=== PATIENT | male | born 1965 | race Caucasian/White ===

== ENCOUNTER 2020-05-06 09:11 | Emergency (ER) | payer BC, SELFPAY ==
[2020-05-06 09:29] VITALS: BP 159/74; PULSE 72; RESP 18; TEMP 36.7; O2SAT 98; BMI 31.4
--- NOTE | 2020-05-06 09:48 | HMH.EDUTC ---
[facility] [place] Disposition Clinical Impression: Exposure to COVID-19 virus Disposition: Home, Self-Care Condition on Discharge: Good Instructions: Preventing the Spread of Coronavirus Discharge Instructions Additional Instructions: Drink plenty of fluids. Take tylenol for pain or fever. Follow up with your regular doctor. GO TO THE ER FOR ANY WORSENING SYMPTOMS FOLLOW THE DIRECTIONS ON THE COVID-19 HAND OUT THAT WE GAVE YOU REGARDING SELF-ISOLATION UNTIL YOU KNOW YOUR COVID-19 RESULTS Referrals: Lynnette Mohamud [Primary Care Provider] - Time of Disposition: 09:50 Medical Decision Making - Medical Records Medical records reviewed: No: I reviewed the patient's medical records. - Walker Inquiry Pt receiving controlled substance: No Vital Signs: 05/06/20 09:29 05/06/20 09:58 Temperature 98.1 F 98.1 F Temperature Source Oral Oral Pulse Rate 72 Pulse Rate [Radial] 72 Respiratory Rate 18 18 Blood Pressure 159/74 H Blood Pressure [Right Arm] 159/74 H Blood Pressure Mean [Right Arm] 102 Blood Pressure Source Automatic Cuff Blood Pressure Source [Right Arm] Automatic Cuff Blood Pressure Position Sitting Blood Pressure Position [Right Arm] Sitting 02 Sat by Pulse Oximetry 98 Oxygen Delivery Method Room Air Room Air Orders (Tests/Meds): ORDERS Category Date Time Status Full Resp Panel w/COVID ([facility]) Routine Lab 05/06/20 09:24 Received [facility] [place] HPI - General Stated complaint: wants covid test Time Seen by Provider: 05/06/20 09:30 Mode of Arrival: Ambulatory Source of Information: Patient Limitations: No Limitations Description of Symptoms (Recalled from Triage Doc. by RN): covid exposure HEENT Symptoms (Recalled from RN notes): No Resp Symptoms (Recalled from RN notes): No Skin Symptoms (Recalled from RN notes): No MS Symptoms (Recalled from RN notes): No Functional Status (Recalled from RN notes): wnl - History of Present Illness Provider Complaint: He was exposed to covid approx 1 week ago. He denies any symptoms. - Related Data Allergies Allergy/AdvReac Type Severity Reaction Status Date / Time No Known Allergies Allergy Verified 05/06/20 09:35 - Worker's Comp Is this a Worker's Comp case?: No [facility] History - Hepatitis A Screen Drug use history?: No High risk sexual behaviors?: No History of sexually transmitted infection?: No Currently employed?: No Childcare worker?: No Do you have indoor plumbing?: Yes Do you have electricity?: Yes Attestation statement:: This patient has been screened for Hepatitis A risk factors. I have reviewed the patient's past medical history: Yes Medical History: Reports:: Diabetes Mellitus Type 2 - Social History Smoking Status: Current every day smoker Tobacco Type: cigarettes # Packs/Day (cigarettes): 1 Alcohol Intake: never Occupational Status: employed Housing: house ROS Obtained: Yes All systems reviewed & no additional complaints - Constitutional Constitutional: Reports system reviewed and no additional complaints, except as docu - Eyes Eyes: Reports system reviewed and no additional complaints, except as docu - ENT Ears, Nose, Mouth, and Throat: Reports system reviewed and no additional complaints, except as docu - Cardiovascular Cardiovascular: Reports system reviewed and no additional complaints, except as docu - Respiratory Respiratory: Yes system reviewed and no additional complaints, except as docu - Gastrointestinal Gastrointestingal: Reports: system reviewed and no additional complaints, except as docu Physical Exam - General General appearance: alert, in no apparent distress - Head Head exam: atraumatic, normocephalic, normal inspection - Eye Eye exam: Present: normal appearance, PERRL, EOMI - ENT ENT exam: Present: normal exam, normal oropharynx, mucous membranes moist, TM's normal bilaterally, normal external ear exam - Neck Neck exam: Present: normal inspection, full RO
[2020-05-06 09:58] VITALS: BP 159/74; PULSE 72; RESP 18; TEMP 36.7; O2SAT 98
[2020-05-07 14:02] LABS: Covid-19 Nasal PCR Sendout Lex NOT DETECTED
== END 2020-05-06 09:59 | disposition home or self-care (01) ==
PROVIDERS: Emergency Provider Nurse Practitioner Family; PCP Internal Medicine
DX: Z20.828 Contact with and (suspected) exposure to other viral communicable diseases (principal); F17.210 Nicotine dependence, cigarettes, uncomplicated
CPT/HCPCS: 99201; U0004

== ENCOUNTER 2020-12-30 01:43 | Emergency (ER) | payer BC, OTHER, SELFPAY ==
[2020-12-30] VITALS (8 sets, daily range): BP systolic 128–149; BP diastolic 67–83; PULSE 67–87; RESP 16; TEMP 36.6–36.8; O2SAT 96–98; BMI 31.8
--- NOTE | 2020-12-30 01:58 | CT_ITS ---
PROCEDURE INFORMATION: Exam: CT Abdomen And Pelvis With Contrast Exam date and time: 12/30/2020 1:58 AM Age: 55 years old Clinical indication: Abdominal pain; Localized; Left lower quadrant (llq); Patient HX: Left low quad pain and flank pain x 1 week; Additional info: Abd pain TECHNIQUE: Imaging protocol: Computed tomography of the abdomen and pelvis with contrast. Radiation optimization: All CT scans at this facility use at least one of these dose optimization techniques: automated exposure control; mA and/or kV adjustment per patient size (includes targeted exams where dose is matched to clinical indication); or iterative reconstruction. Contrast material: ISOVUE; Contrast volume: 75 ml; Contrast route: IV; COMPARISON: No relevant prior studies available. FINDINGS: Liver: Normal. Gallbladder and bile ducts: Normal. Pancreas: Minimally enlarged pancreatic head, with adjacent associated fat stranding, possibly acute pancreatitis. No pseudocyst formation or pancreatic necrosis. Spleen: Splenic calcifications, compatible with prior granulomatous disease. Adrenal glands: Normal. No mass. Kidneys and ureters: Normal. Stomach and bowel: Normal. Appendix: Appendix is normal. Intraperitoneal space: Unremarkable. No free air. No significant fluid collection. Vasculature: Atherosclerotic disease of the abdominal aorta and iliac arteries. Lymph nodes: Unremarkable. No enlarged lymph nodes. Urinary bladder: Unremarkable as visualized. Reproductive: Unremarkable as visualized. Bones/joints: No acute abnormality. Soft tissues: Normal. Other findings: Calcified granulomas within the lower lobes bilaterally. IMPRESSION: Minimally enlarged pancreatic head, with adjacent associated fat stranding, possibly acute pancreatitis. No pseudocyst formation or pancreatic necrosis. Recommend correlation with laboratory values.
[2020-12-30 02:04] LABS: Microscopic, Urine URINE MICROSCOPIC (MICROSCOPIC)
[2020-12-30 02:06] LABS: Appearance,Urine CLEAR (Clear); Bilirubin,Urine Negative (Negative); Blood, Urine Negative (Negative); Color,Urine YELLOW (Yellow); Glucose,Urine (UA) Negative (Negative); Ketones,Urine Negative (Negative); Leukocyte Esterase,Urine Negative (Negative); Nitrate,Urine Negative (Negative); PH,Urine 5.5 (5.0-8.5); Protein,Urine Negative (Negative); Specific Gravity, Urine 1.025 (1.005-1.030); Urobilinogen,Urine 0.2 EU/dl (0.2)
[2020-12-30 02:07] LABS: Basophils # 0.2 K/mm3 (0-0.2); Basophils % 1.1 % (0.1-2.0); Eosinophils # 0.3 K/mm3 (0.0-0.4); Eosinophils % 1.8 % (0.1-12.0); Hematocrit 49.6 % (42.0-52.0); Hemoglobin 17.3 g/dL (14.1-18.0); Lymphocytes % 21.7 % (10-50); Mean Corpuscular HGB Conc 34.9 g/dL (31.8-35.4); Mean Corpuscular Hemoglobin 29.2 pg (27.0-31.2); Mean Corpuscular Volume 83.8 fl (80-94); Mean Platelet Volume 7.4 fl (7.4-10.4); Monocytes # 0.7 K/mm3 (0.1-1.0); Monocytes % 5.2 % (1.7-9.3); Neutrophils # 9.7 K/mm3 (1.8-7.8); Neutrophils % 70.2 % (37.0-80.0); Platelet Count 284 K/mm3 (142-424); Red Blood Count 5.92 M/mm3 (4.60-6.20); Red Cell Distribution Width 13.2 % (11.5-17.5); White Blood Count 13.8 K/mm3 (4.8-10.8)
[2020-12-30 02:12] LABS: Bacteria,Urine 1+ /lpf; Mucus,Urine 1+ /lpf; RBC,Urine Occasional #/hpf (0-3); WBC,Urine Occasional #/hpf (0-3)
[2020-12-30 02:16] LABS: Alanine Aminotransferase 21 U/L (12-78); Albumin Level 4.8 g/dl (3.5-5.0); Albumin/Globulin Ratio 1.4 (1.1-1.8); Alkaline Phosphatase 73 U/L (38-126); Amylase 105 U/L (30-110); Anion Gap 14.4 mEq/L (5-15); Aspartate Amino Transferase 26 U/L (17-59); Blood Urea Nitrogen 11 mg/dl (9-20); Carbon Dioxide 26 mmol/L (22.0-30.0); Chloride 101 mmol/L (98-107); Creatinine Clearance Estimated 154 mL/min (50-200); Estimated Glomerular Filt Rate 101 ml/min (>60); GFR (African American) 122 ML/MIN (>60); Globulin 3.5 g/dL (1.3-3.2); Glucose 115 mg/dl (74-100); Lipase 512 U/L (23-300); Potassium 4.4 mmoL/L (3.5-5.1); Sodium 137 mmol/L (136-145); Total Protein,Serum 8.3 g/dl (6.3-8.2)
[2020-12-30 02:22] LABS: C-Reactive Protein 13.5 mg/L (0-4)
[2020-12-30 02:36] LABS: Procalcitonin 0.081 ng/mL (0.0-2.0)
[2020-12-30 02:42] LABS: Erythrocyte Sedimentation Rate 14 mm/hr (0-20)
--- NOTE | 2020-12-30 02:48 | HMH.EDNVD ---
ED Disposition Clinical Impression: Pancreatitis Qualifiers: Chronicity: acute Pancreatitis type: unspecified pancreatitis type Acute pancreatitis complication: no infection or necrosis Qualified Code(s): K85.90 - Acute pancreatitis without necrosis or infection, unspecified Disposition: Home, Self-Care Condition on Discharge: Good Instructions: DI for Pancreatitis Additional Instructions: liquids and see pcp for follow up Referrals: Lynnette Mohamud [Primary Care Provider] - - Critical Care Critical Care Time: No Attestation: On 12/30/20, the high probability of a clinically significant, sudden or life threatening deterioration of the following system(s) required my full and direct attention, intervention and personal management. The time I documented below is in addition to time spent performing reported procedures but includes the following listed in this critical care notation. Medical Decision Making - Medical Records Medical records reviewed: Yes: I reviewed the patient's medical records. - Walker Inquiry Pt receiving controlled substance: No Vital Signs: 12/30/20 01:44 12/30/20 02:00 12/30/20 02:30 Temperature 98.3 F Temperature Source Oral Pulse Rate 82 72 Pulse Rate [Right] 87 Respiratory Rate 16 16 Blood Pressure 147/83 H 128/67 Blood Pressure [Right Arm] 148/75 H Blood Pressure Mean Blood Pressure Mean [Right Arm] 99 02 Sat by Pulse Oximetry 98 97 97 Oxygen Delivery Method Room Air Room Air 12/30/20 03:00 12/30/20 03:30 12/30/20 04:00 Temperature Temperature Source Pulse Rate 73 74 72 Pulse Rate [Right] Respiratory Rate Blood Pressure 149/76 H 133/76 135/76 Blood Pressure [Right Arm] Blood Pressure Mean 107 Blood Pressure Mean [Right Arm] 02 Sat by Pulse Oximetry 97 98 96 Oxygen Delivery Method Room Air - Lab Data Lab results reviewed: Yes: I reviewed the patient's lab results. Lab Results 12/30/20 01:50: Urine Color Yellow, Urine Appearance Clear, Urine pH 5.5, Ur Specific Franklin 1.025, Urine Protein Negative, Urine Glucose (UA) Negative, Urine Ketones Negative, Urine Blood Negative, Urine Nitrate Negative, Urine Bilirubin Negative, Urine Urobilinogen 0.2, Ur Leukocyte Esterase Negative, Urine RBC Occasional, Urine WBC Occasional, Ur Squamous Epith Cells 3-5, Urine Bacteria 1+, Urine Mucus 1+ 12/30/20 01:57: WBC 13.8 H, RBC 5.92, Hgb 17.3, Hct 49.6, MCV 83.8, MCH 29.2, MCHC 34.9, RDW 13.2, Plt Count 284, MPV 7.4, Neut % (Auto) 70.2, Lymph % (Auto) 21.7, Dare % (Auto) 5.2, Eos % (Auto) 1.8, Baso % (Auto) 1.1, Neut # (Auto) 9.7 H, Lymph # (Auto) 3.0, Dare # (Auto) 0.7, Eos # (Auto) 0.3, Baso # (Auto) 0.2, ESR 14 12/30/20 01:57: Sodium 137, Potassium 4.4, Chloride 101, Carbon Dioxide 26, Anion Gap 14.4, BUN 11, Creatinine 0.80, Estimated Creat Clear 154, Estimated GFR 101, Est GFR ( Amer) 122, Glucose 115 H, Calcium 9.0, Total Bilirubin 1.0, AST 26, ALT 21, Alkaline Phosphatase 73, C-Reactive Protein 13.5 H, Total Protein 8.3 H, Albumin 4.8, Globulin 3.5 H, Albumin/Globulin Ratio 1.4, Amylase 105, Lipase 512 H, Procalcitonin 0.081 Result diagrams: 12/30/20 01:57 12/30/20 01:57 Orders (Tests/Meds): ED MEDICATIONS Generic Name Dose Route Start Last Admin Trade Name Freq PRN Reason Stop Dose Admin Sodium Chloride 1,000 mls @ 999 mls/hr 12/30/20 02:00 12/30/20 02:03 Sod Chlor 0.9% 1000ml Bag IV 12/30/20 03:00 999 mls/hr .Q1H1M GARTH Administration Sodium Chloride 1,000 mls @ 999 mls/hr 12/30/20 04:00 12/30/20 04:08 Sod Chlor 0.9% 1000ml Bag IV 12/30/20 05:00 999 mls/hr .Q1H1M GARTH Administration Sodium Chloride 8 ml 12/30/20 02:00 Sodium Chloride 0.9% 10ml Vial IV 01/29/21 01:59 NEEDED PRN dilute pepcid Discontinued Medications Generic Name Dose Route Start Last Admin Trade Name Freq PRN Reason Stop Dose Admin Famotidine 20 mg 12/30/20 02:00 12/30/20 02:03 Famotidine 20mg/2ml Via
--- NOTE | 2020-12-30 02:54 | PC.NURSE ---
pt returned from CT
--- NOTE | 2020-12-30 03:58 | US_ITS ---
PROCEDURE INFORMATION: Exam: US Abdomen; Limited Exam date and time: 12/30/2020 3:58 AM Age: 55 years old Clinical indication: Abdominal pain; Patient HX: Left side pain, epigastric pain; Additional info: Luq pain TECHNIQUE: Imaging protocol: US abdomen. Real time ultrasound with image documentation. Limited exam focused on the region of clinical interest. COMPARISON: CT ABDOMEN PELVIS W CON 12/30/2020 2:38 AM FINDINGS: Liver: The liver is unremarkable. Gallbladder: There is mild gallbladder hydrops. No gallstones or sludge is seen. The wall thickness is within normal limits. No sonographic Pepe sign is noted no pericholecystic fluid is seen. Pancreas: The pancreas is somewhat obscured by overlying bowel gas. Intraperitoneal space: The kidneys are unremarkable. No free fluid is seen. IMPRESSION: Unremarkable right upper quadrant study.
== END 2020-12-30 06:01 | disposition home or self-care (01) ==
PROVIDERS: Emergency Provider Emergency Medicine; PCP Internal Medicine
DX: K85.90 Acute pancreatitis without necrosis or infection, unspecified (principal); E11.9 Type 2 diabetes mellitus without complications; I10 Essential (primary) hypertension; F17.210 Nicotine dependence, cigarettes, uncomplicated; Z79.899 Other long term (current) drug therapy
CPT/HCPCS: 74177; 76705; 80053; 81001; 82150; 83690; 84145; 85025; 85651; 86140; 96365; 96366; 96375; 99283; Q9967

== ENCOUNTER 2021-01-21 08:43 | Day surgery (SDC) | payer BC, SELFPAY ==
[2021-01-21] VITALS (7 sets, daily range): BP systolic 126–150; BP diastolic 70–78; PULSE 62–91; RESP 18; TEMP 36.3–36.6; O2SAT 97–99; BMI 27.8
[2021-01-21 08:55] LABS: Coronavirus 19, PCR Not Detected (NotDetected); Influenza A, PCR Not Detected (NotDetected); Influenza B, PCR Not Detected (NotDetected)
[2021-01-21 10:23] LABS: POC Glucose,Bedside 147 (70-110)
--- NOTE | 2021-01-21 11:00 | FL_ITS ---
PROCEDURE: FL ERCP CLINICAL INDICATION: abnormal diagnostic findings Pancreatitis COMPARISON: No exams were available for comparison FINDINGS: Pancreatic duct was 1st cannulated showing some minimal irregularity in the pancreatic head region. Common bile duct did not appear dilated. No large filling defects were apparent. Prior cholecystectomy IMPRESSION: Minimal irregularity of the main pancreatic duct which could be related to pancreatitis. Prior cholecystectomy. No biliary ductal dilatation or large filling defects Dictated by: Neftaly Dumont MD 01/24/2021 16:21 Neftaly Dumont MD in [facility] 01/24/2021 16:21
--- NOTE | 2021-01-21 12:06 | HMH.PROC ---
[facility] Procedure Note Procedure Note:: ERCP procedure Report: Endoscopic retrograde cholangiopancreatography with biliary sphincterotomy and balloon extraction Endoscopist: Kt Richardson II, MD Referring Physician: Lynnette Mohamud MD ([facility]) Date of Procedure: January 21, 2021 Equipment: Olympus 180 side viewing endoscope duodenoscope Sedation: MAC sedation Indication: Mr. Arnold is a 55-year-old gentleman with acute pancreatitis and was hospitalized at the [facility]. He was having periumbilical abdominal pain radiating into the left upper quadrant. He was hospitalized for 3 days and has just now began advancing diet. He uses alcohol rarely but does smoke tobacco daily. The patient did have lab work with normal liver chemistries (alkaline phosphatase 85, ALT 12 and total bilirubin 0.7. His hemoglobin 17.0 and hematocrit 50.5 were normal. His amylase returned to normal at 67. His CAT scan had shown some minimally elevated pancreatic head with adjacent fat stranding. Procedure: Prior to the procedure, a history and physical exam was performed, and patient's medications and allergies were reviewed. The risks, benefits and alternatives of the sedation and procedure were discussed with the patient. All questions were answered and informed consent was obtained. The patient was brought to the fluoroscopic radiology room. Patient identification and proposed procedure were verified by the physician and the nurse. The patient was placed in a swimmer's position between left lateral decubitus and prone position and the scope was passed under direct vision. Throughout the procedure, the patient's blood pressure, pulse, and oxygen saturations were monitored continuously. The ERCP was accomplished without difficulty. The patient tolerated the procedure well. Findings: The side-viewing duodenal scope was passed directly into the upper esophagus and advanced to the second portion of the duodenum. The ampulla was well visualized. The ampulla was normal in appearance and size. The pancreatic duct was cannulated. The pancreatogram showed a normal 2 to 3 mm pancreatic duct with normal filling of the head body and tail of the gland. The genu was normal. There were no ductular ectasias or strictures. There were no intraductal calcifications or filling defects. Next, the common bile duct was freely cannulated. There was some thickness at the sphincter of Oddi. There was delayed drainage of contrast and bile. There was no intraductal filling defects or strictures. There was no biliary ductal dilation. The CBD was approximately 6 to 7 mm in diameter. There was normal filling of the intrahepatic biliary system. There was also normal filling of the cystic duct and partial filling of the gallbladder. Because of delayed drainage, a biliary sphincterotomy was performed. There was extravasation of bile and some contrast as well as a moderate amount of flaky sludgelike debris. Extension of the biliary sphincterotomy was performed. Next, a 9 mm sweeping balloon was placed at the hilum and swept through the biliary system with the passage of bile, sludge but no stones. There was excellent decompression of the biliary system. The procedure was then ended. Impression: 1. Minor choledocholithiasis?minor flaky debris which is probable cause of the patient's recent pancreatitis (i.e. microlithiasis) Plan: The patient is clinically improving. I have recommended avoidance of alcohol and tobacco. I will discuss the findings with the patient and family today.
--- NOTE | 2021-01-21 12:18 | P.PN_ITS ---
[facility] Anesthesia Checklist - Patient Identification Patient Identification: Arm Band - Structural Data Admitted From: Home Planned Operative Procedure/s: ercp Consent for Planned Operative Procedure(s) Verified: Yes Verified Documents: Surgical Consent, History and Physical - NPO Status Verified Time NPO: 00:00 - Additional verifications Anesthesia Reactions: No - Airway Assessment C-Spine Mobility Assessed: Yes (mp2) TMJ Mobility Assessed: Yes Dentition: Poor Dentition - Neurological Assessment Level of Consciousness: Awake, Alert - Anesthesia Plan Anesthesia Risk discussed: Yes Anesthesia Plan: Verified ASA Class: III Anesthesia Type: MAC [facility] History I have reviewed the patient's past medical history: Yes Medical History: Reports:: Diabetes Mellitus Type 2, Gastroesophageal Reflux Disease(GERD), Hypertension Denies:: Cancer, Diabetes Mellitus Type 1, Internal Pacemaker, MRSA, Seizures *Have you ever received a pneumonia vaccine?: No *Have you received a flu vaccine this season?: No Anesthesia experience/problems:: nac Other Surgeries: Yes: Other. No: Pacemaker Amputation: No - *Social History Last grade of school completed: 9th or 10th Smoking Status: Current every day smoker Tobacco Type: cigarettes # Packs/Day (cigarettes): 2 Smoking End Date: 01/18/21 Alcohol Intake: current Alcohol Intake Frequency:: a few times a month Substance Use Type: denies use *Occupational Status:: retired Housing: house Household Members: spouse *Travel in the last 8 weeks: None Family Hx:: No significant family history
== END 2021-01-21 13:20 | disposition home or self-care (01) ==
LOC: OUTP 08:45
PROVIDERS: PCP Internal Medicine; Visit Provider Internal Medicine Gastroenterology
PROC: (CPT 43262; principal; 2021-01-21 12:00)
DX: K80.50 Calculus of bile duct without cholangitis or cholecystitis without obstruction (principal); Z72.0 Tobacco use; K85.90 Acute pancreatitis without necrosis or infection, unspecified; R10.33 Periumbilical pain; E11.9 Type 2 diabetes mellitus without complications; K21.9 Gastro-esophageal reflux disease without esophagitis; I10 Essential (primary) hypertension; Z79.84 Long term (current) use of oral hypoglycemic drugs; Z79.899 Other long term (current) drug therapy
CPT/HCPCS: 43262; 74330; 82962; U0003

== ENCOUNTER 2023-04-30 06:05 | Emergency (ER) | payer BC, SELFPAY ==
[2023-04-30 06:06] VITALS: BP 175/89; PULSE 78; RESP 20; TEMP 36.6; O2SAT 95; BMI 32.1
--- NOTE | 2023-04-30 06:23 | XR_ITS ---
PROCEDURE INFORMATION: Exam: XR Chest Exam date and time: 04/30/2023 7:11 AM Age: 58 years old Clinical indication: Right-sided; Patient HX: Fall 3 days ago, right sided rib pain; Additional info: Fall, right rib pain, worsening TECHNIQUE: Imaging protocol: Radiologic exam of the chest. Views: 1 view. COMPARISON: CT ABDOMEN PELVIS W CON 12/30/2020 2:38 AM FINDINGS: Lungs: Emphysematous change and interstitial prominence. Pleural spaces: No pleural effusion. Heart/Mediastinum: No cardiomegaly. Bones/joints: Mild degenerative change. If rib fracture is of clinical concern, dedicated rib radiographs would be recommended. IMPRESSION: No acute airspace or pleural disease.
--- NOTE | 2023-04-30 06:54 | PC.NURSE ---
RAD at BS for xray
--- NOTE | 2023-04-30 07:00 | HMH.EDGENADL ---
Discharge Plan Disposition Patient Disposition: Home, Self-Care Condition: Good Prescriptions Prescriptions: New methocarbamol 500 mg tablet 500 mg PO Q6H PRN (Reason: pain) Qty: 30 0RF oxycodone 5 mg tablet 5 mg PO Q8H PRN (Reason: pain) Qty: 12 0RF No Action polyethylene glycol 3350 17 GM powder in packet 17 gm PO DAILYP PRN (Reason: Constipation) hydrocodone-acetaminophen 1 TAB tablet 1 tab PO Q4HP PRN (Reason: pain) amlodipine 10 MG tablet 10 mg PO DAILY lactulose 10 GM packet 10 gm PO DAILY docusate sodium 100 MG capsule 100 mg PO DAILY magnesium citrate 1 BOT bottle 10 ml PO NEEDED PRN (Reason: Constipation) enoxaparin 40 MG/0.4 ML syringe 40 mg SQ DAILY pantoprazole 40 MG tablet,delayed release (DR/EC) 40 mg PO DAILY metformin 1,000 MG tablet 1,000 mg PO BID Referrals Follow up/Referrals: Lynnette Mohamud [Primary Care Provider] - See instructions Activity Restrictions/Add. Instructions Additional Instructions/Restrictions: You likely have a rib fracture. Please take Tylenol and ibuprofen as needed for pain. Please use muscle relaxers as needed. Please use lidocaine patches as needed. A very short course of oxycodone was prescribed. Use this only if pain is severe and not responsive to other medications. Please use the incentive spirometer as discussed, the goal is to keep the lungs open and help prevent pneumonia. If it is a rib fracture, it will require multiple weeks to heal. If the pain continues to worsen or does not improve, recommend return to the ER. Clinical Impressions Clinical Impression: Chest pain made worse by breathing, Rib contusion Discharge ED Provider: Gael Panchal General Adult HPI General Chief complaint: Fall Stated complaint: right side pain, soa, fall Time Seen by Provider: 04/30/23 06:09 Mode of Arrival: Ambulatory Source of Information: Patient Limitations: No Limitations Description of Symptoms (Recalled from ER Triage Doc. by RN): 58 y/o M reports he fell getting out of the bed of his truck on his tailgate last Friday 04/27 and is now having upper right quadrant pain. Patient reports he felt sore last few days but pain has now increased. History of Present Illness HPI narrative: 58-year-old male, history of hypertension and diabetes presents with right rib pain. Patient reports that he fell several days ago off the back of his truck and had right chest wall pain since that time. He reports that last night he rolled over in bed and had a sudden worsening of pain. This prompted his presentation. He denies any abdominal pain. he is not on blood thinners. Denies any recent fever or recent illness. Related Data Home Medications Medication Instructions Recorded Confirmed metformin 1,000 mg tablet 1,000 mg PO BID Diabetes 12/30/20 01/21/21 pantoprazole 40 mg tablet,delayed 40 mg PO DAILY GERD 12/30/20 01/21/21 release amlodipine 10 mg tablet 10 mg PO DAILY High blood pressure 01/21/21 01/21/21 docusate sodium 100 mg capsule 100 mg PO DAILY stool softner 01/21/21 01/21/21 enoxaparin 40 mg/0.4 mL 40 mg SQ DAILY thinner 01/21/21 01/21/21 subcutaneous syringe hydrocodone 5 mg-acetaminophen 325 1 tab PO Q4HP PRN pain 01/21/21 01/21/21 mg tablet lactulose 10 gram oral packet 10 gm PO DAILY stomach 01/21/21 01/21/21 magnesium citrate 10 ml PO NEEDED PRN Constipation 01/21/21 01/21/21 polyethylene glycol 3350 17 gram 17 gm PO DAILYP PRN Constipation 01/21/21 01/21/21 oral powder packet Previous Rx's Medication Instructions Recorded methocarbamol 500 mg tablet 500 mg PO Q6H PRN pain #30 tabs 04/30/23 oxycodone 5 mg tablet 5 mg PO Q8H PRN pain #12 tabs 04/30/23 Allergies Allergy/AdvReac Type Severity Reaction Status Date / Time No Known Allergies Allergy Verified 01/21/21 09:54 [facility] Disclaimer: The information contained in this section may have been updated aft
[2023-04-30 07:05] VITALS: BP 147/78; PULSE 88; RESP 20; TEMP 37.1; O2SAT 97
== END 2023-04-30 07:07 | disposition home or self-care (01) ==
PROVIDERS: Emergency Provider Emergency Medicine; PCP Internal Medicine
DX: R07.1 Chest pain on breathing (principal); S20.211A Contusion of right front wall of thorax, initial encounter; I10 Essential (primary) hypertension; E11.9 Type 2 diabetes mellitus without complications; F17.210 Nicotine dependence, cigarettes, uncomplicated; Z79.84 Long term (current) use of oral hypoglycemic drugs; W19.XXXA Unspecified fall, initial encounter
CPT/HCPCS: 71045; 96374; 99284

== ENCOUNTER 2025-01-20 14:04 | Inpatient (IN) | payer BC, SELFPAY ==
[2025-01-20 14:11] VITALS: BP 160/68; PULSE 74; RESP 18; TEMP 36.8; O2SAT 95; BMI 30.7
--- NOTE | 2025-01-20 14:15 | US_ITS ---
FINAL REPORT CLINICAL HISTORY: RUQ abd pain COMPARISON: None FINDINGS: Sonographic images of the right upper quadrant were obtained. The pancreas is partially obscured.The liver has an unremarkable appearance. Stones and sludge are seen in the gallbladder. The gallbladder wall is thickened with pericholecystic fluid. The common duct measures 6 mm. Limited images of the right kidney are unremarkable. IMPRESSION: Findings concerning for underlying acute cholecystitis. Reviewed, Interpreted and Dictated by Weston Renee MD Transcribed by Marianela Mesa Authenticated and [facility]
--- NOTE | 2025-01-20 14:18 | ED_ITS ---
Discharge Plan Disposition Patient Disposition: Admitted Prescriptions Prescriptions: No Action polyethylene glycol 3350 17 GM powder in packet 17 gm PO DAILYP PRN (Reason: Constipation) hydrocodone-acetaminophen 1 TAB tablet 1 tab PO Q4HP PRN (Reason: pain) amlodipine 10 MG tablet 10 mg PO DAILY lactulose 10 GM packet 10 gm PO DAILY docusate sodium 100 MG capsule 100 mg PO DAILY magnesium citrate 1 BOT bottle 10 ml PO NEEDED PRN (Reason: Constipation) enoxaparin 40 MG/0.4 ML syringe 40 mg SQ DAILY pantoprazole 40 MG tablet,delayed release (DR/EC) 40 mg PO DAILY metformin 1,000 MG tablet 1,000 mg PO BID methocarbamol 500 mg tablet 500 mg PO Q6H PRN (Reason: pain) Qty: 30 0RF oxycodone 5 mg tablet 5 mg PO Q8H PRN (Reason: pain) Qty: 12 0RF Referrals Follow up/Referrals: Provider,Referral, MD [Referring, Medical] - See instructions Clinical Impressions Clinical Impression: Acute calculous cholecystitis, Abdominal pain, RUQ Instructions Patient Instructions: DI for Acute Abdominal Pain Print Language Print Language: Czech Discharge ED Provider: Harvinder Lazar General Adult HPI General Chief complaint: Abdominal Pain Stated complaint: Pancreatic Attack-Possibly Abdmonial Pain Time Seen by Provider: 01/20/25 14:10 Mode of Arrival: Ambulatory Source of Information: Patient Description of Symptoms (Recalled from ER Triage Doc. by RN): RUQ pain that started yesterday morning, non-radiating. Rates pain 01/29. Denies N/V/D. History of Present Illness HPI narrative: Patient is a 59-year-old male with a history of choledocholithiasis and ERCP with sphincter[place] [address] Richardson presents today with right upper quadrant abdominal pain. Never had a cholecystectomy or any subsequent complications from that time but also has a history of pancreatitis of unclear etiology. Patient states that symptoms began yesterday have become severe located right upper quadrant no chest pain no exertional symptoms no shortness of breath diaphoresis or pain elsewhere in his abdomen or pelvis. Related Data Home Medications ?Medication ?Instructions ?Recorded ?Confirmed metformin 1,000 mg tablet 1,000 mg PO BID Diabetes 05/1201/21/21 pantoprazole 40 mg tablet,delayed 40 mg PO DAILY GERD 12/30/20 01/21/21 release amlodipine 10 mg tablet 10 mg PO DAILY High blood pr essure 01/21/21 01/21/21 docusate sodium 100 mg capsule 100 mg PO DAILY stool s oftner 01/21/21 01/21/21 enoxaparin 40 mg/0.4 mL 40 mg SQ DAILY thinner 01/2101/21/21 subcutaneous syringe hydrocodone 5 mg-acetaminophen 325 1 tab PO Q4HP PRN p ain 01/21/21 01/21/21 mg tablet lactulose 10 gram oral packet 10 gm PO DAILY stomach 0 01/21/21 01/21/21 magnesium citrate 10 ml PO NEEDED PRN Const ipation 01/21/21 01/21/21 polyethylene glycol 3350 17 gram 17 gm PO DAILYP PRN C onstipation 01/21/21 01/21/21 oral powder packet Previous Rx's ?Medication ?Instructions ?Recorded methocarbamol 500 mg tablet 500 mg PO Q6H PRN pain #30 tabs 04/30/23 oxycodone 5 mg tablet 5 mg PO Q8H PRN pain #12 tab s 04/30/23 Allergies Allergy/AdvReac Type Severity Reaction Status Date / Time No Known Allergies Allergy Verified 01/21/21 09:[address] [facility] Disclaimer: The information contained in this section may have been updated after the patient was seen, as this information can be updated by other users. Social History Smoking Status: Current every day smoker tobacco type: cigarettes packs per day: 2 second hand exposure: Yes alcohol intake: current alcohol intake frequency: a few times a month substance use type: denies use current occupational status: retired Travel in the last 8 weeks?: None household members: spouse housing: house caffeine: Yes Have you lived/traveled outside US in past 30 days?: No Contact w/someone who lives/traveled outside US past 30 days?: No Exposure to someone with infectious disease in past 14 days?: No Do you have a fever (greater than 100.4 F or 38 C)?: No Have you tested positive for COVID-19?: No Exposed to someone with COVID-19 in past 14 days?: No Do you have a sore throat?: No Do you have a cough?: No Do you have any weakness?: No Do you have any diarrhea?: No Are you experiencing any unusual bleeding?: No Do you have any muscle aches/pain?: No Do you have any abdominal pain?: Yes Are you experiencing loss of taste or smell?: No Other Medical History Have you received the Flu Vaccine for this season: No Have you received the Pneumonia Vaccine: No ROS Obtained: Yes All systems reviewed & no additional complaints except as documented Physical Exam General General appearance: alert and in no apparent distress Respiratory Respiratory exam: Present normal lung sounds bilaterally Cardiovascular Cardiovascular exam: Present regular rate Abdominal Exam Abdominal exam: Present soft, distention and tenderness (Significant right upper quadrant tenderness with minimal palpation no rebound or guarding no tenderness elsewhere) Neurological Exam Neurological exam: Present alert and oriented X3 Medical Decision Making Medical Records Screening: Per USPSTF and CDC recommendations, given the prevalence of disease in our region, it is our hospital?s policy to screen for HIV and viral Hepatitis for all patients aged 18 and over and those with ongoing risk factors. Walker Inquiry Pt receiving controlled substance: No Vital Signs: 01/20/25 14:11 Temperature 98.2 F Temperature Source Oral Pulse Rate [Right Brachial] 74 Respiratory Rate 18 Blood Pressure [Right Arm] 160/68 H Blood Pressure Mean [Right Arm] 98 Blood Pressure Source [Right Arm] Automatic Cuff Blood Pressure Position [Right Arm] Sitting 02 Sat by Pulse Oximetry 95 Oxygen Delivery Method Room Air Lab Data Lab results reviewed: Yes I reviewed the patient's lab results. Lab Results 01/20/25 14:20: WBC 13.5 H, RBC 5.39, Hgb 15.9, Hct 46.0, MCV 85.3, MCH 29.5, MCHC 34.6, RDW 13.1, Plt Count 205, MPV 9.8, Neut % (Auto) 76.1, Lymph % (Auto) 14.8, [place] % (Auto) 7.3, Eos % (Auto) 0.5, Baso % (Auto) 0.7, Neut # (Auto) 10.3 H, Lymph # (Auto) 2.0, [place] # (Auto) 1.0, Eos # (Auto) 0.1, Baso # (Auto) 0.1, S odium 135 L, Potassium 4.2, Chloride 97 L, Carbon Dioxide 26, Anion Gap 16.2 H, BUN 8 L, Creatinine 0.70, Estimated Creat Clear 162, Estimated GFR 116, Est GFR ( Amer) 140, Glucose 129 H, Calcium 8.6, Total Bilirubin 1.7 H, AST 27, ALT 21, Alkaline Phosphatase 81, Total Protein 7.9, Albumin 4.4, Globulin 3.5 H, Albumin/Globulin Ratio 1.3, Lipase 32 01/20/25 14:20 01/20/25 14:20 Orders (Tests/Meds): ED MEDICATIONS Discontinued Medications Generic Name Dose Route Start Last Admin Trade Name Aiden PRN Reason Stop Dose Admin Lactated Ringer's 1,000 mls @ 999 mls/hr 01/20/25 14:15 01/20/25 14:35 Lactated Ringer's 1000 Ml Bag IV 01/20/25 15:15 999 mls/hr .Q1H1M GARTH Administration Morphine Sulfate 4 mg 01/20/25 14:15 01/20/25 14:34 Morphine 4mg/Ml Syringe IV 01/20/25 14:16 4 mg ONCE ONE Administration Ondansetron HCl 4 mg 01/20/25 14:15 01/20/25 14:34 Ondansetron 4mg/2ml Vial IV 01/20/25 14:16 4 mg ONCE ONE Administration ORDERS Category Date Time Status US RUQ [US abdomen limited] Stat Exams 01/20/25 14:15 Taken CBC w/Auto Diff [Complete Blood Count Auto Diff] Stat Lab 01/20/25 14:20 Completed CMP [Comprehensive Metabolic Panel] Stat Lab 01/20/25 14:20 Completed HIV Combo Routine Lab 01/20/25 14:20 Received Hepatitis C Ab Qual. W/ RFX Routine Lab 01/20/25 14:20 Received Lipase Stat Lab 01/20/25 14:20 Completed Medical Decision Narrative: 59-year-old with above history and physical differential includes cholecystitis cholelithiasis that is symptomatic choledocholithiasis pancreatitis etc. Will get labs right quadrant ultrasound symptomatic medications and reassess. Reassessment 324 ultrasound was performed which I personally interpreted also reviewed the technicians notes. There is evidence of gallstones there is anterior gallbladder wall thickening as well as pericholecystic fluid and a positive sonographic Pepe's. This is all consistent with acute calculus cholecystitis. No evidence of any CBD dilatation or obstructing pattern on labs. Patient will be need to be admitted for surgical intervention. Will discuss the case with general surgery. Did not will be added if there is any change in management. Critical Care Critical Care Time Critical Care Time: Yes Attestation: On 01/20/25, the high probability of a clinically significant, sudden or life threatening deterioration of the following system(s) required my full and direct attention, intervention and personal management. The time I documented below is in addition to time spent performing reported procedures but includes the following listed in this critical care notation. Total Time Total Critical Care Time: 35
--- OUTSIDE RECORDS SUMMARY | 2025-01-20 14:26 | XMS_ITS | Clinical Summary ---
Author Organization [facility] Address [address] [place] [address] Care Team Providers Care Director Targeted Marketing Name Role Phone Lynnette Mohamud MD Primary Care Provider [phone] Allergies Active Allergy Reactions Criticality Noted Date Comments Statins Other - please docum ent in the comment field Low 01/15/2021 Muscle and joint pain Medications metFORMIN (Glucophage) 1000 MG tablet Take 1 tablet by mouth 2 (two) times a day. 1 Active HYDROcodone-mateo taminophen (Moira) 5-325 MG tablet Take 1 tablet by mouth 4 (four) times a day if needed. 1 Active Nicotine Step 1 21 MG/24HR patch APPLY 1 PATCH ONCE DAILY REMOVING OLD PATCH WHEN APPLYING NEW. ROTATE APPLICATION SITES. 1 Active pantoprazole (ProtoNix) 40 MG EC tablet Take 40 mg by mouth 1 (one) time each day in the morning. 1 Active docusate sodium (Colace) 100 MG capsule Take 200 mg by mouth 1 (one) time each day in the morning. Active acetaminophen (Tylenol) 500 MG tablet Take by mouth every 6 (six) hours if needed for mild pain. Active polyethylene glycol (Miralax) 17 g packet Take 17 g by mouth 1 (one) time each day in the morning. Active amLODIPine (Norvasc) 10 MG tablet Take 1 tablet (10 mg total) by mouth 1 (one) time each day. 30 tablet 1 1 Active Active Problems Problem Noted Date Diagnosed Date HTN (hypertension) 01/15/2021 Type 2 diabetes mellitus 01/15/2021 HLD (hyperlipidemia) 01/15/2021 Resolved Problems Problem Noted Date Diagnosed Date Resolved Date Acute pancreatitis 01/15/2021 Idiopathic acute pancreatiti s without infection or necrosis 01/15/2021 01/18/2021 Immunizations Immunization Administration Dates Next Due Moderna COVID-19 Vaccine (Mold Worker) 12+ years ,08/12/2020 TD (adult), 2 Lf tetanus tox oid, preservative free, adsorbed 10/16/1996 Family History Medical History Relation Name Comments COPD Father Aneurysm Mother Relation Name Status Comments Father Mother Social History Tobacco Use Types Packs/Day Years Used Date Smoking Tobacco: Every Day Cigarettes Alcohol Use Standard Drinks/Week Comments Yes 0 (1 standard drink = 0.6 oz pur e alcohol) occassional Sex and Gender Information Value Date Recorded Sex Assigned at Not on file Legal Sex Male 9:36 PM EDT Gender Identity Not on file Sexual Orientation Not on file Last Filed Vital Signs Vital Sign Reading Time Taken Comments Blood Pressure 154/79 01/18/2021 7:24 AM EDT Pulse 72 01/18/2021 7:24 AM EDT Temperature 36.7 C (98 F) 01/18/2021 7:24 AM EDT Respiratory Rate 18 01/18/2021 7:24 AM EDT Oxygen Saturation 99% 01/18/2021 7:24 AM EDT Inhaled Oxygen Concentration - - Weight 94.3 kg (208 lb) 01/15/2021 1:35 PM EDT Height 180.3 cm (5' 11 ) 01/15/2021 1:35 PM EDT Body Mass Index 29.01 01/15/2021 1:35 PM EDT Plan of Treatment Health Maintenance Due Date Last Done Comments [facility]-Depression Screening 1966 [facility]-Infant/Child/Adol SDOH Screenings 1966 [facility]- SDOH Screenings 1984 [facility]-Adult SDOH Screenings 1984 [facility]-Hepatitis B Vaccines (1 of 3 - 19+ 3-dose series) 1985 [facility]-DTaP,Tdap,and Td Vaccine s (1 - Tdap) 10/17/1996 10/16/1996 CT Colonography 2011 Colonoscopy 2011 FIT-DNA 2011 FIT 2011 FOBT 2011 Sigmoidoscopy 2011 [facility]-Colorectal Cancer Screening 2011 [facility]-Pneumococcal Vaccine: 50 + Years (1 of 1 - PCV) 2016 [facility]-Zoster Vaccines (1 of 2) 2016 [id number] Vaccine (3 - season) 2024 09/10/2020, 08/12/2020 [facility]-Influenza Vaccine (Seas[place] n Ended) 2025 HPV Vaccines Aged Out No longer eligi ble based on patient's age to complete this topic [facility]-HIB Vaccines Aged Out No longer e ligible based on patient's age to complete this topic [facility]-Hepatitis A Vaccines Aged Out No longer eligible based on patient's age to complete this topic [facility]-IPV Vaccines Aged Out No longer e ligible based on patient's age to complete this topic [facility]-Rotavirus Vaccines Aged Out No lo nger eligible based on patient's age to complete this topic [place] [address] [place] [address] Care Teams Director Targeted Marketing Relationship Specialty Start Date End Date Lynnette Mohamud MD [address] [place] [address] PCP - General 01/15/21
[2025-01-20] MEDS: ONDANSETRON 4MG/2ML VIAL 4 MG IV (14:34)
[2025-01-20] MEDS: MORPHINE 4MG/ML SYRINGE 4 MG IV ×4 (14:34→23:52)
[2025-01-20] MEDS: LACTATED RINGERS 1000ML 1,000 ML 999 ML IV (14:35)
[2025-01-20 14:37] LABS: Hematocrit 46.0 % (42.0-52.0); Hemoglobin 15.9 g/dL (14.1-18.0); Immature Granulocytes % 0.6 %; Mean Corpuscular HGB Conc 34.6 g/dL (31.8-35.4); Mean Corpuscular Hemoglobin 29.5 pg (27.0-31.2); Mean Corpuscular Volume 85.3 fl (80-94); Nucleated Red Blood Cells % 0 %; Platelet Count 205 K/mm3 (142-424); Red Blood Count 5.39 M/mm3 (4.60-6.20); Red Cell Distribution Width-SD 40.3 fL; White Blood Count 13.5 K/mm3 (4.8-10.8)
[2025-01-20 14:47] LABS: Albumin Level 4.4 g/dl (3.5-5.0); Chloride 97 mmol/L (98-107); Potassium 4.2 mmoL/L (3.5-5.1); Sodium 135 mmol/L (136-145)
[2025-01-20 14:50] LABS: Alanine Aminotransferase 21 U/L (12-78); Albumin/Globulin Ratio 1.3 (1.1-1.8); Alkaline Phosphatase 81 U/L (38-126); Anion Gap 16.2 mEq/L (5-15); Aspartate Amino Transferase 27 U/L (17-59); Bilirubin,Total 1.7 mg/dl (0.2-1.3); Blood Urea Nitrogen 8 mg/dl (9-20); Calcium 8.6 mg/dl (8.4-10.2); Carbon Dioxide 26 mmol/L (22.0-30.0); Creatinine Clearance Estimated 162 mL/min (50-200); Creatinine,Serum 0.70 mg/dl (0.66-1.25); Estimated Glomerular Filt Rate 116 ml/min (>60); GFR (African American) 140 ML/MIN (>60); Globulin 3.5 g/dL (1.3-3.2); Glucose 129 mg/dl (74-100); Total Protein,Serum 7.9 g/dl (6.3-8.2)
[2025-01-20 14:51] LABS: Lipase 32 U/L (23-300)
--- NOTE | 2025-01-20 15:22 | PC.NURSE ---
Paged Gen Surgery to call ER for the Doctor
[2025-01-20 15:30] VITALS: PULSE 71; O2SAT 96
[2025-01-20 16:04] LABS: Hepatitis C Ab Qual. W/ RFX NEGATIVE (Negative)
--- NOTE | 2025-01-20 16:12 | P.CONS_ITS ---
History of Present Illness *Admission Date: 01/20/25 *Reason for visit:: Gallbladder *History of present illness: Patient is a 59-year-old male from [facility] with history of diabetes, sleep apnea, pancreatitis. He has a prior history of pancreatitis in December 2020 at which time he was seen in the emergency department at this facility and managed as an outpatient. He subsequently had progressive ongoing symptoms and presented to and was admitted at [facility]. Imaging at that time revealed unremarkable gallbladder. He underwent ERCP as an outpatient [address] Richardson at this facility. He had extraction of flaky sludgelike debris from the common duct and sphincterotomy was performed. He presented to the emergency department today with a 1 day history of right upper quadrant pain becoming progressive to the point of quite severe. Transaminases normal. Bilirubin slightly elevated at 1.7. Lipase normal. White blood cell count 13,500 with essentially normal differential. He underwent gallbladder ultrasound which reveals enlarged gallbladder with thickened wall and pericholecystic fluid with multiple small gallstones. Given his clinical scenario as well as sonographic findings plan was made for admission for inpatient management acute cholecystitis. [facility] Disclaimer: The information contained in this section may have been updated after the patient was seen, as this information can be updated by other users. Social History Smoking Status: Current every day smoker tobacco type: cigarettes packs per day: 2 second hand exposure: Yes alcohol intake: current alcohol intake frequency: a few times a month substance use type: denies use current occupational status: retired Travel in the last 8 weeks?: None household members: spouse housing: house caffeine: Yes Have you lived/traveled outside US in past 30 days?: No Contact w/someone who lives/traveled outside US past 30 days?: No Exposure to someone with infectious disease in past 14 days?: No Do you have a fever (greater than 100.4 F or 38 C)?: No Have you tested positive for COVID-19?: No Exposed to someone with COVID-19 in past 14 days?: No Do you have a sore throat?: No Do you have a cough?: No Do you have any weakness?: No Do you have any diarrhea?: No Are you experiencing any unusual bleeding?: No Do you have any muscle aches/pain?: No Do you have any abdominal pain?: Yes Are you experiencing loss of taste or smell?: No Review of Systems Review of Systems Review of systems:: pertinent systems reviewed and negative unless documented below Meds Home Medications and Allergies Home Medications ?Medication ?Instructions ?Recorded ?Confirmed ?Type metformin 1,000 mg tablet 1,000 mg PO BID Diabetes 05/1201/21/21 History pantoprazole 40 mg tablet,delayed 40 mg PO DAILY GERD 12/30/20 01/21/21 History release amlodipine 10 mg tablet 10 mg PO DAILY High blood pr essure 01/21/21 01/21/21 History docusate sodium 100 mg capsule 100 mg PO DAILY stool s oftner 01/21/21 01/21/21 History enoxaparin 40 mg/0.4 mL 40 mg SQ DAILY thinner 01/2101/21/21 History subcutaneous syringe hydrocodone 5 mg-acetaminophen 325 1 tab PO Q4HP PRN p ain 01/21/21 01/21/21 History mg tablet lactulose 10 gram oral packet 10 gm PO DAILY stomach 0 01/21/21 01/21/21 History magnesium citrate 10 ml PO NEEDED PRN Const ipation 01/21/21 01/21/21 History polyethylene glycol 3350 17 gram 17 gm PO DAILYP PRN C onstipation 01/21/21 01/21/21 History oral powder packet methocarbamol 500 mg tablet 500 mg PO Q6H PRN pain #30 tabs 04/30/23 Rx oxycodone 5 mg tablet 5 mg PO Q8H PRN pain #12 tab s 04/30/23 Rx New Prescriptions to Start Prescriptions: Allergies Allergy/AdvReac Type Severity Reaction Status Date / Time No Known Allergies Allergy Verified 01/21/21 09:54 Exam (Inpt) Vital signs and Labs for Last 24 Hours: Temp Pulse Resp BP Pulse Ox O2 Del Method 98.2 F 71 18 160/68 H 96 Room Air 01/20/25 14:11 01/20/25 15:30 01/20/25 14:11 01/20/25 14:11 01/20/25 15:30 01/20/25 14:11 Laboratory Results - last 24 hr 01/20/25 14:20: WBC 13.5 H, RBC 5.39, Hgb 15.9, Hct 46.0, MCV 85.3, MCH 29.5, MCHC 34.6, RDW 13.1, Plt Count 205, MPV 9.8, Neut % (Auto) 76.1, Lymph % (Auto) 14.8, [place] % (Auto) 7.3, Eos % (Auto) 0.5, Baso % (Auto) 0.7, Neut # (Auto) 10.3 H, Lymph # (Auto) 2.0, [place] # (Auto) 1.0, Eos # (Auto) 0.1, Baso # (Auto) 0.1, S odium 135 L, Potassium 4.2, Chloride 97 L, Carbon Dioxide 26, Anion Gap 16.2 H, BUN 8 L, Creatinine 0.70, Estimated Creat Clear 162, Estimated GFR 116, Est GFR ( Amer) 140, Glucose 129 H, Calcium 8.6, Total Bilirubin 1.7 H, AST 27, ALT 21, Alkaline Phosphatase 81, Total Protein 7.9, Albumin 4.4, Globulin 3.5 H, Albumin/Globulin Ratio 1.3, Lipase 32, HCV Ab YADIRA w/Rflx PCR Qn Negative, HIV Ag/Ab Combo Qual Negative I & O for Labs for Last 24 Hours: Intake & Output 01/18/25 01/19/25 01/20/25 01/21/25 11:59 11:59 11:59 11:59 Weight 220 lb Constitutional: no acute distress and chronically ill appearing Respiratory: Present CTA bilaterally Cardiac: Present Reg Rate and Rhythm GI: Present soft and Pepe's sign Comments:: Tender with guarding in the right upper quadrant Results Labs 01/20/25 14:20 01/20/25 14:20 Labs: Laboratory Results - last 24 hr 01/20/25 14:20: WBC 13.5 H, RBC 5.39, Hgb 15.9, Hct 46.0, MCV 85.3, MCH 29.5, MCHC 34.6, RDW 13.1, Plt Count 205, MPV 9.8, Neut % (Auto) 76.1, Lymph % (Auto) 14.8, [place] % (Auto) 7.3, Eos % (Auto) 0.5, Baso % (Auto) 0.7, Neut # (Auto) 10.3 H, Lymph # (Auto) 2.0, [place] # (Auto) 1.0, Eos # (Auto) 0.1, Baso # (Auto) 0.1, S odium 135 L, Potassium 4.2, Chloride 97 L, Carbon Dioxide 26, Anion Gap 16.2 H, BUN 8 L, Creatinine 0.70, Estimated Creat Clear 162, Estimated GFR 116, Est GFR ( Amer) 140, Glucose 129 H, Calcium 8.6, Total Bilirubin 1.7 H, AST 27, ALT 21, Alkaline Phosphatase 81, Total Protein 7.9, Albumin 4.4, Globulin 3.5 H, Albumin/Globulin Ratio 1.3, Lipase 32, HCV Ab YADIRA w/Rflx PCR Qn Negative, HIV Ag/Ab Combo Qual Negative Assessment and Plan *Assessment and plan (1) Acute calculous cholecystitis: Status: Acute Category: Medical Code(s): K80.00 - Calculus of gallbladder with acute cholecystitis without obstruction Plan Recommend admission for bowel rest with limited diet. May have clear liquids tonight. Tentatively plan for cholecystectomy tomorrow.
--- NOTE | 2025-01-20 16:22 | EXP.HP ---
History of Present Illness *Admission Date: 01/20/25 *Reason for visit:: Right upper quadrant pain *History of present illness: 59-year-old male who presents with 2 days of right upper quadrant pain. Pain became very severe mainly in the right upper quadrant. No referral to shoulder. Accompanied by some nausea but no emesis. Denies shortness of breath or chest pain. Afebrile. Not associated with eating, more or less constant at this time. Has history of gallbladder sludge and pancreatitis in 2020. Underwent ERCP with sphincterotomy at that time. Presentation today, white count 13.5, quite tender in right upper quadrant. Liver enzymes relatively normal with bilirubin 1.7, AST 27, ALT 21, alk phos 81. Lipase 32. Imaging obtained showing distended gallbladder with wall thickening. Findings consistent with cholecystitis. Medicine consulted for admission and further management. Surgery consulted to mateo for cholecystectomy. [facility] Disclaimer: The information contained in this section may have been updated after the patient was seen, as this information can be updated by other users. Social History Smoking Status: Current every day smoker tobacco type: cigarettes packs per day: 2 second hand exposure: Yes alcohol intake: current alcohol intake frequency: a few times a month substance use type: denies use current occupational status: retired Travel in the last 8 weeks?: None household members: spouse housing: house caffeine: Yes Have you lived/traveled outside US in past 30 days?: No Contact w/someone who lives/traveled outside US past 30 days?: No Exposure to someone with infectious disease in past 14 days?: No Do you have a fever (greater than 100.4 F or 38 C)?: No Have you tested positive for COVID-19?: No Exposed to someone with COVID-19 in past 14 days?: No Do you have a sore throat?: No Do you have a cough?: No Do you have any weakness?: No Do you have any diarrhea?: No Are you experiencing any unusual bleeding?: No Do you have any muscle aches/pain?: No Do you have any abdominal pain?: Yes Are you experiencing loss of taste or smell?: No Other Medical History Have you received the Flu Vaccine for this season: No Have you received the Pneumonia Vaccine: No Review of Systems Review of Systems Review of systems (narrative): 14 point review of systems performed, pertinent positives and negatives as per HPI Meds Home Medications and Allergies Home Medications ?Medication ?Instructions ?Recorded ?Confirmed ?Type metformin 1,000 mg tablet 1,000 mg PO BID Diabetes 12/30/20 01/20/25 History pantoprazole 40 mg tablet,delayed 40 mg PO DAILY GERD 12/30/20 01/20/25 History release amlodipine 10 mg tablet 10 mg PO DAILY 01/20/25 01/20/25 History empagliflozin 25 mg tablet 25 mg PO DAILY 01/20/25 01/20/25 History (Jardiance) New Prescriptions to Start Prescriptions: Allergies Allergy/AdvReac Type Severity Reaction Status Date / Time No Known Allergies Allergy Verified 01/21/21 09:54 Exam Data for Last 24 hours Vital signs and Labs for Last 24 Hours: Temp Pulse Resp BP Pulse Ox O2 Del Method 98.2 F 71 18 160/68 H 96 Room Air 01/20/25 14:11 01/20/25 15:30 01/20/25 14:11 01/20/25 14:11 01/20/25 15:30 01/20/25 14:11 Laboratory Results - last 24 hr 01/20/25 14:20: WBC 13.5 H, RBC 5.39, Hgb 15.9, Hct 46.0, MCV 85.3, MCH 29.5, MCHC 34.6, RDW 13.1, Plt Count 205, MPV 9.8, Neut % (Auto) 76.1, Lymph % (Auto) 14.8, [place] % (Auto) 7.3, Eos % (Auto) 0.5, Baso % (Auto) 0.7, Neut # (Auto) 10.3 H, Lymph # (Auto) 2.0, [place] # (Auto) 1.0, Eos # (Auto) 0.1, Baso # (Auto) 0.1, Sodium 135 L, Potassium 4.2, Chloride 97 L, Carbon Dioxide 26, Anion Gap 16.2 H, BUN 8 L, Creatinine 0.70, Estimated Creat Clear 162, Estimated GFR 116, Est GFR ( Amer) 140, Glucose 129 H, Calcium 8.6, Total Bilirubin 1.7 H, AST 27, ALT 21, Alkaline Phosphatase 81, Total Protein 7.9, Albumin 4.4, Globulin 3.5 H, Albumin/Globulin Ratio 1.3, Lipase 32, HCV Ab YADIRA w/Rflx PCR Qn Negative, HIV Ag/Ab Combo Qual Negative I & O for Last 24 hours: Intake & Output 01/17/25 01/18/25 01/19/25 01/20/25 23:59 23:59 23:59 23:59 Weight 99.79 kg Constitutional Constitutional: no acute distress, average body habitus and cooperative *Routine HEENT Exam Head: Present normocephalic Eye: Present EOMI and PERRL ENT: Present mucous membranes moist *Routine Neck Exam Neck: Present supple; Absent lymphadenopathy *Routine Respiratory Exam Respiratory: Present CTA bilaterally *Routine Cardiovascular Exam Cardiovascular: Present RRR *Routine Abdominal Exam Abdominal: Present soft, normoactive bowel sounds and tenderness (Quite tender in right upper quadrant, worse with deep inspiration); Absent distended *Routine Rectal Exam Rectal:: deferred *Routine Genitalia Exam Genitalia:: deferred *Routine Extremities Exam Extremities: Absent cyanosis, clubbing or edema *Routine Skin Exam Skin: Present warm; Absent rash *Routine Neurological Exam Neurological: Present alert, oriented X3 and moving all extremities; Absent altered mental status Assessment and Plan *Assessment and plan (1) Acute calculous cholecystitis: Status: Acute Category: Medical Code(s): K80.00 - Calculus of gallbladder with acute cholecystitis without obstruction (2) Abdominal pain, RUQ: Status: Acute Category: Medical Code(s): R10.11 - Right upper quadrant pain (3) Diabetes: Status: Acute Category: Medical Code(s): E11.9 - Type 2 diabetes mellitus without complications (4) Obstructive sleep apnea: Status: Acute Category: Medical Code(s): G47.33 - Obstructive sleep apnea (adult) (pediatric) (5) Tobacco use disorder: Status: Acute Category: Medical Code(s): F17.200 - Nicotine dependence, unspecified, uncomplicated (6) Hypertension: Status: Acute Category: Medical Code(s): I10 - Essential (primary) hypertension Plan 9-year-old male who presents with right upper quadrant pain, acute onset. Presentation consistent with cholecystitis. Discussed case with ER physician, request admission for antibiotics and surgical eval. I decided to admit for further care. Initiated on morphine and IV fluids. Problems addressed as follows: Cholecystitis Right upper quadrant pain - Formal right upper quadrant ultrasound per my review showing stones and sludge in the gallbladder. Is wall thickening with pericholecystic fluid. CBD does not appear dilated. Approximately 6 mm by my measurement - White count 13.5, lipase and liver enzymes normal with AST and ALT less than 30. - Discussed case with surgery, planning on cholecystectomy tomorrow. N.p.o. at midnight - Repeat CBC, CMP, magnesium ordered for the morning - Kidney function normal with BUN 8, creatinine 0.7 - Maintenance IV fluids with LR at 100 cc an hour - Morphine 2 mg IV as needed every 2 hours for pain. Diabetes: Sliding scale insulin and fingersticks ACHS. Well-managed with metformin and Jardiance. Reports A1c of 7.1 in the past month Hypertension: Holding blood pressure meds at this time pending surgery. Will reevaluate/reinitiate after surgery. Continue pantoprazole 40 mg nightly for GERD Clear liquid diet, n.p.o. after midnight Full code Lovenox 40 mg subcu once
--- NOTE | 2025-01-20 16:37 | PC.NURSE ---
dr valles @bedside
--- NOTE | 2025-01-20 16:37 | PC.NURSE ---
Dr. Brandt @ bedside
--- NOTE | 2025-01-20 16:38 | PC.NURSE ---
report called to Yehuda ORDONEZ
[2025-01-20 17:03] VITALS: BP 187/89; PULSE 71; RESP 20; TEMP 36.8; O2SAT 99
[2025-01-20 17:05] VITALS: BP 187/89; PULSE 69; RESP 20; TEMP 36.7; O2SAT 97; BMI 29.5
[2025-01-20] MEDS: LACTATED RINGERS 1000ML 1,000 ML 100 ML IV (17:27)
[2025-01-20 20:00] VITALS: BP 150/69; PULSE 70; RESP 17; TEMP 36.9; O2SAT 96
[2025-01-20] MEDS: PANTOPRAZOLE 40MG TABLET 40 MG PO (20:14)
[2025-01-20 20:59] LABS: POC Glucose,Bedside 111 (70-110)
[2025-01-21] VITALS (28 sets, daily range): BP systolic 118–163; BP diastolic 48–84; PULSE 66–80; RESP 12–23; TEMP 36.1–37.7; O2SAT 90–98; BMI 29.9
[2025-01-21] MEDS: LACTATED RINGERS 1000ML 1,000 ML 100 ML IV ×2 (03:09→20:56)
[2025-01-21] MEDS: MORPHINE 4MG/ML SYRINGE 4 MG IV ×5 (03:13→21:50)
--- NOTE | 2025-01-21 04:22 | PC.NURSE ---
Pt A&O x 4. Pt is on RA. Pt still voicing RUQ pain. Pt has been medicated for pain 3 times so far this shift, see MAR. Pt has been NPO since MN. No significant changes noted. Pt resting w/ call light in reach. POC ongoing.
[2025-01-21 05:51] LABS: POC Glucose,Bedside 105 (70-110)
[2025-01-21 06:41] LABS: Hematocrit 44.2 % (42.0-52.0); Hemoglobin 14.7 g/dL (14.1-18.0); Immature Granulocytes % 0.7 %; Mean Corpuscular HGB Conc 33.3 g/dL (31.8-35.4); Mean Corpuscular Hemoglobin 28.7 pg (27.0-31.2); Mean Corpuscular Volume 86.3 fl (80-94); Nucleated Red Blood Cells % 0 %; Platelet Count 190 K/mm3 (142-424); Red Blood Count 5.12 M/mm3 (4.60-6.20); Red Cell Distribution Width-SD 40.7 fL; White Blood Count 16.3 K/mm3 (4.8-10.8)
[2025-01-21 07:07] LABS: Alanine Aminotransferase 16 U/L (12-78); Albumin Level 4.0 g/dl (3.5-5.0); Albumin/Globulin Ratio 1.3 (1.1-1.8); Alkaline Phosphatase 74 U/L (38-126); Anion Gap 16.0 mEq/L (5-15); Aspartate Amino Transferase 21 U/L (17-59); Bilirubin,Total 2.0 mg/dl (0.2-1.3); Blood Urea Nitrogen 8 mg/dl (9-20); Calcium 7.7 mg/dl (8.4-10.2); Carbon Dioxide 23 mmol/L (22.0-30.0); Chloride 95 mmol/L (98-107); Creatinine Clearance Estimated 158 mL/min (50-200); Creatinine,Serum 0.70 mg/dl (0.66-1.25); Estimated Glomerular Filt Rate 116 ml/min (>60); GFR (African American) 140 ML/MIN (>60); Globulin 3.1 g/dL (1.3-3.2); Glucose 96 mg/dl (74-100); Magnesium 1.8 mg/dl (1.6-2.3); Potassium 4.0 mmoL/L (3.5-5.1); Sodium 130 mmol/L (136-145); Total Protein,Serum 7.1 g/dl (6.3-8.2)
--- NOTE | 2025-01-21 08:02 | HMH.PHAINT1 ---
Pharmacy Intervention Comments: HOME MEDICATION LIST VERIFIED USING LIST FROM OUTPATIENT PHARMACY
[2025-01-21] MEDS: PIPERCILLIN/TAZO 3.375 GM in 0.9 % SODIUM CHLORIDE 50 ML IV ×3 (08:08→20:02)
--- NOTE | 2025-01-21 09:33 | P.PN_ITS ---
Subjective Narrative: Patient states that he feels pretty rough . Ongoing appreciable right upper quadrant tenderness. Exam Data for Last 24 hours Vital signs and Labs for Last 24 Hours: Temp Pulse Resp BP Pulse Ox O2 Del Method 98 F 76 16 163/74 H 93 L Room Air 01/21/25 08:00 01/21/25 08:00 01/21/25 08:00 01/21/25 08:00 01/21/25 08:00 01/21/25 08:00 Laboratory Results - last 24 hr 01/20/25 14:20: WBC 13.5 H, RBC 5.39, Hgb 15.9, Hct 46.0, MCV 85.3, MCH 29.5, MCHC 34.6, RDW 13.1, Plt Count 205, MPV 9.8, Neut % (Auto) 76.1, Lymph % (Auto) 14.8, [place] % (Auto) 7.3, Eos % (Auto) 0.5, Baso % (Auto) 0.7, Neut # (Auto) 10.3 H, Lymph # (Auto) 2.0, [place] # (Auto) 1.0, Eos # (Auto) 0.1, Baso # (Auto) 0.1, Sodium 135 L, Potassium 4.2, Chloride 97 L, Carbon Dioxide 26, Anion Gap 16.2 H, BUN 8 L, Creatinine 0.70, Estimated Creat Clear 162, Estimated GFR 116, Est GFR ( Amer) 140, Glucose 129 H, Calcium 8.6, Total Bilirubin 1.7 H, AST 27, ALT 21, Alkaline Phosphatase 81, Total Protein 7.9, Albumin 4.4, Globulin 3.5 H, Albumin/Globulin Ratio 1.3, Lipase 32, HCV Ab YADIRA w/Rflx PCR Qn Negative, HIV Ag/Ab Combo Qual Negative 01/20/25 20:52: POC Glucose 111 H 01/21/25 05:44: POC Glucose 105 01/21/25 05:57: WBC 16.3 H, RBC 5.12, Hgb 14.7, Hct 44.2, MCV 86.3, MCH 28.7, MCHC 33.3, RDW 13.1, Plt Count 190, MPV 10.0, Neut % (Auto) 77.5, Lymph % (Auto) 12.2, [place] % (Auto) 8.6, Eos % (Auto) 0.4, Baso % (Auto) 0.6, Neut # (Auto) 12.6 H, Lymph # (Auto) 2.0, [place] # (Auto) 1.4 H, Eos # (Auto) 0.1, Baso # (Auto) 0.1, Sodium 130 L, Potassium 4.0, Chloride 95 L, Carbon Dioxide 23, Anion Gap 16.0 H, BUN 8 L, Creatinine 0.70, Estimated Creat Clear 158, Estimated GFR 116, Est GFR ( Amer) 140, Glucose 96 D, Calcium 7.7 L, Magnesium 1.8, Total Bilirubin 2.0 H, AST 21, ALT 16, Alkaline Phosphatase 74, Total Protein 7.1, Albumin 4.0, Globulin 3.1, Albumin/Globulin Ratio 1.3 I & O for Last 24 hours: Intake & Output 01/18/25 01/19/25 01/20/25 01/21/25 11:59 11:59 11:59 11:59 Intake Total 640 / 640 Output Total 1000 / 1000 Balance -360 / -360 Weight 213 lb 8 oz *Routine Abdominal Exam Abdominal: Present soft and tenderness Comments: Tender with voluntary guarding right upper quadrant Progress Note: A&P Assessment and plan (1) Acute calculous cholecystitis: Status: Acute Assessment and plan: He has had a progressive leukocytosis despite antibiotics. Plan to proceed with cholecystectomy. Could require open cholecystectomy. Bilirubin is 2.0 however remainder of liver function tests are unremarkable. 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
[2025-01-21 09:37] LABS: POC Glucose,Bedside 114 (70-110)
--- NOTE | 2025-01-21 09:43 | EXP.ANES.CKL ---
[facility] Disclaimer: The information contained in this section may have been updated after the patient was seen, as this information can be updated by other users. Social History Smoking Status: Current every day smoker tobacco type: cigarettes packs per day: 2 second hand exposure: Yes alcohol intake: current alcohol intake frequency: a few times a month substance use type: denies use current occupational status: retired Travel in the last 8 weeks?: None household members: spouse housing: house caffeine: Yes Have you lived/traveled outside [place] in past 30 days?: No Contact w/someone who lives/traveled outside US past 30 days?: No Exposure to someone with infectious disease in past 14 days?: No Do you have a fever (greater than 100.4 F or 38 C)?: No Have you tested positive for COVID-19?: No Exposed to someone with COVID-19 in past 14 days?: No Do you have a sore throat?: No Do you have a cough?: No Do you have any weakness?: No Do you have any diarrhea?: No Are you experiencing any unusual bleeding?: No Do you have any muscle aches/pain?: No Do you have any abdominal pain?: Yes Are you experiencing loss of taste or smell?: No [facility] Anesthesia Checklist Patient Identification Patient Identification: Arm Band Structural Data Admitted From: Home Planned Operative Procedure/s: Laparoscopic Cholecystectomy Consent for Planned Operative Procedure(s) Verified: Yes Verified Documents: Surgical Consent and History and Physical NPO Status Verified Time NPO: 00:00 Additional verifications Anesthesia Reactions: No Airway Assessment Mallampati Score:: Class II C-Spine Mobility Assessed: Yes TMJ Mobility Assessed: Yes Dentition: Poor Dentition (upper edentulous, multiple missing lower teeth) Neurological Assessment Level of Consciousness: Awake, Alert and Appropriate Anesthesia Plan Anesthesia Risk discussed: Yes Anesthesia Plan: Verified ASA Class: II Anesthesia Type: General
[2025-01-21] MEDS: LIDOCAINE 1% 20ML MDV 20 ML (11:13)
--- NOTE | 2025-01-21 12:17 | SUR.OPER ---
1215- VO given by Dr Brandt to have the patient return to the floor in a Step Down bed. VO repeated and correct. Deputy Bailiff, Roosevelt called at this time to relay VO. HS to call back with new room.
--- NOTE | 2025-01-21 12:34 | SUR.OPER ---
1324- called back, patient will go to room 265
--- NOTE | 2025-01-21 13:06 | EXP.OP.NOTE ---
Date of procedure: 01/21/25 Pre-op Diagnosis:: Acute cholecystitis Post-op Diagnosis:: Same Procedure performed:: Laparoscopic cholecystectomy Surgeon:: Jean Brandt MD SENIOR TRAINING [employer] DEVELOPMENT REP:: Alvin Walters Anesthesia: GETGhassan Estimated blood loss (mL): 150 Clinical Note:: Patient is a 59-year-old male from [facility] with history of diabetes, sleep apnea, pancreatitis. He has a prior history of pancreatitis in December 2020 at which time he was seen in the emergency department at this facility and managed as an outpatient. He subsequently had progressive ongoing symptoms and presented to and was admitted at [facility]. Imaging at that time revealed unremarkable gallbladder. He underwent ERCP as an outpatient [address] Richardson at this facility. He had extraction of flaky sludgelike debris from the common duct and sphincterotomy was performed. He presented to the emergency department 01/20/25 with a 1 day history of right upper quadrant pain becoming progressive to the point of quite severe. Transaminases normal. Bilirubin slightly elevated at 1.7. Lipase normal. White blood cell count 13,500 with essentially normal differential. He underwent gallbladder ultrasound which reveals enlarged gallbladder with thickened wall and pericholecystic fluid with multiple small gallstones consistent with acute calculus cholecystitis. Given his clinical scenario as well as sonographic findings plan was made for admission for inpatient management acute cholecystitis. Overnight patient had progressive elevation of his white blood cell count despite antibiotics. Plan was made to proceed with cholecystectomy. . Operative findings:: He had a severely inflamed thickened almost phlegmonous somewhat intrahepatic gallbladder filled with sludge and multiple small stones. There is fibrinopurulent exudate surrounding the gallbladder. There was bile-stained pericholecystic fluid. Liver appeared somewhat consistent with nodular cirrhosis. It was somewhat friable and easily bled. Operative note:: Consent was obtained and patient was taken the operating room. He was positioned in a supine position. General anesthesia was induced via endotracheal tube. Abdomen was prepped and draped in the standard surgical fashion. Supraumbilical skin incision was made and while performing abdominal wall lift Veress needle was inserted. CO2 pneumoperitoneum was achieved to 15 mmHg. 11 mm optical trocar was inserted at the umbilicus. Intraperitoneal contents were visualized. He was positioned in reverse Trendelenburg left side down. A couple 5 mm trocars were inserted in the right upper abdomen and an 11 mm trocar was inserted in the epigastrium. Liver appeared enlarged and possibly consistent with nodular cirrhosis. It was friable. Gallbladder was identified and found to be markedly inflamed. It was tense and thickened. It was partially intrahepatic. The gallbladder was aspirated with laparoscopic needle aspirator with thick bilious bile evacuated. This allowed grasping of the gallbladder anteriorly. Gallbladder is markedly elongated and distended. To allow for visualization of the neck of the gallbladder the 0 degree laparoscope was placed with a 30 degree 10 mm laparoscope. Visualization at the neck of the gallbladder was still not possible due to the gallbladder elongation and enlargement and distention. Additional 5 mm trocar was inserted and fan retractor was inserted which allowed for visualization of the infundibulum and neck of the gallbladder. Infundibulum was retracted anterior laterally. Blunt dissection was carried out at the neck of the gallbladder. There was profound intense inflammatory response. Initially identification of anatomy was somewhat difficult. Ultimately the cystic duct was identified. It was markedly inflamed. With prolonged careful dissection it was isolated. Cystic duct was multiply clipped. Due to the inflammation clip was not placed on the gallbladder side. Cystic duct was divided at the gallbladder. Cystic artery was carefully coagulated with ultrasonic harmonic diamond. Dissection was began dissecting the gallbladder free from the liver in a retrograde fashion using ultrasonic harmonic diamond. However due to the profound inflammatory response and it being somewhat intrahepatic this proved not possible and dissection was carried out with the hook electrocautery. The liver bled rather easily. Several times portions of Surgicel were cut and used for temporary hemostasis during the dissection process. There was some unavoidable spillage of thick sludge like bile and stones which were evacuated and immediately suctioned free. Gallbladder was ultimately able to be dissected free in its entirety from the liver and placed within an Endo Catch retrieval device and removed from the peritoneal cavity via the umbilical trocar site which required extension of the fascial incision for delivery. Jackson use of electrocautery was used on the gallbladder fossa for hemostasis. Thorough irrigation and suctioning was performed. Once it appears as though decent hemostasis was achieved after irrigation and suctioning Surgicel powder was deployed into the gallbladder fossa. There appeared to be good hemostasis. A 10 NATE drain was placed into the peritoneal cavity to exit through the right lateral 5 mm trocar site incision. It was placed in the subhepatic space within the gallbladder fossa and ultimately secured to the skin with a 2-0 nylon horizontal mattress suture. Trocars were then removed and CO2 pneumoperitoneum was evacuated. Fascia at the supraumbilical incision was closed with multiple interrupted 0 Ethibond sutures. Local anesthetic was infiltrated. Skin incisions were closed with 4-0 Monocryl in a subcuticular fashion. Steri-Strips and dressings were applied. Condition: stable Disposition: PACU Complications:: None immediately apparent
--- NOTE | 2025-01-21 13:20 | P.PNANES_ITS ---
[facility] Anesthesia Record Part I Anesthesia Record I Intake, IV Amount: 1,000 Hydration: Adequate Estimated blood loss (mL): 10 Urine output (mL): 0 Blood Products used (#): none Blood Pressure: 131/72 SaO2: 92 Pulse Rate: 79 Airway Patency: Patent Respiratory Rate: 14 Temperature: 97.0 F Patient is:: Mask O2, Oral/Nasal airway, Stable and Somnolent Stable to PACU at:: 13:12
[2025-01-21 13:22] LABS: POC Glucose,Bedside 155 (70-110)
--- NOTE | 2025-01-21 14:17 | EXP.ACUTE.PN ---
Subjective *Date: 01/21/25 *Time: 16:32 Interval history: Patient taken for cholecystectomy today. Has not complications with bleeding. Was escalated to stepdown for monitoring overnight. Repeat H&H pending this afternoon. Was afebrile overnight but had elevated temperature of 99.8. White count remains elevated at this morning. Medical Exam Vital signs and Labs for Last 24 Hours: Vital Signs Temp Pulse Pulse Resp BP BP Pulse Ox 01/21/25 13:20 97.0 F L 79 14 131/72 01/21/25 09:40 97.4 F L 78 17 141/84 H 98 01/21/25 09:00 01/21/25 08:00 93 L 01/21/25 08:00 98 F 76 16 163/74 H 93 L 01/21/25 06:48 01/21/25 05:00 01/21/25 03:53 99.8 F H 79 18 152/67 H 91 L 01/21/25 03:00 01/21/25 01:00 01/21/25 00:00 98.0 F 75 16 134/67 90 L 01/20/25 23:00 01/20/25 21:00 01/20/25 20:00 01/20/25 20:00 98.5 F 70 17 150/69 H 96 01/20/25 18:37 01/20/25 17:38 01/20/25 17:05 98.1 F 69 20 187/89 H 97 01/20/25 17:03 98.2 F 71 20 187/89 H 01/20/25 17:00 01/20/25 15:30 71 96 O2 Del Method 01/21/25 13:20 01/21/25 09:40 Room Air 01/21/25 09:00 Room Air 01/21/25 08:00 Room Air 01/21/25 08:00 Room Air 01/21/25 06:48 Room Air 01/21/25 05:00 Room Air 01/21/25 03:53 CPAP 01/21/25 03:00 Room Air 01/21/25 01:00 Room Air 01/21/25 00:00 CPAP 01/20/25 23:00 Room Air 01/20/25 21:00 Room Air 01/20/25 20:00 Room Air 01/20/25 20:00 Room Air 01/20/25 18:37 Room Air 01/20/25 17:38 Room Air 01/20/25 17:05 Room Air 01/20/25 17:03 01/20/25 17:00 Room Air 01/20/25 15:30 Intake and Output 01/20/25 01/21/25 01/21/25 23:59 07:59 15:59 Intake Total 640 / 640 1000 / 1000 Output Total 400 / 400 600 / 600 Balance 240 / 240 -600 / 400 1000 / 400 Intake: Intake, Oral Amount 640 / 640 Intake, Total IV Amount 1000 / 1000 Output: Output, Urine Amount 400 / 400 600 / 600 Other: Weight 95.878 kg 96.842 kg Patient Weight 01/21/25 23:59 Weight 96.842 kg Laboratory Results - last 24 hr 01/20/25 14:20: WBC 13.5 H, RBC 5.39, Hgb 15.9, Hct 46.0, MCV 85.3, MCH 29.5, MCHC 34.6, RDW 13.1, Plt Count 205, MPV 9.8, Neut % (Auto) 76.1, Lymph % (Auto) 14.8, [place] % (Auto) 7.3, Eos % (Auto) 0.5, Baso % (Auto) 0.7, Neut # (Auto) 10.3 H, Lymph # (Auto) 2.0, [place] # (Auto) 1.0, Eos # (Auto) 0.1, Baso # (Auto) 0.1, Sodium 135 L, Potassium 4.2, Chloride 97 L, Carbon Dioxide 26, Anion Gap 16.2 H, BUN 8 L, Creatinine 0.70, Estimated Creat Clear 162, Estimated GFR 116, Est GFR ( Amer) 140, Glucose 129 H, Calcium 8.6, Total Bilirubin 1.7 H, AST 27, ALT 21, Alkaline Phosphatase 81, Total Protein 7.9, Albumin 4.4, Globulin 3.5 H, Albumin/Globulin Ratio 1.3, Lipase 32, HCV Ab YADIRA w/Rflx PCR Qn Negative, HIV Ag/Ab Combo Qual Negative 01/20/25 20:52: POC Glucose 111 H 01/21/25 05:44: POC Glucose 105 01/21/25 05:57: WBC 16.3 H, RBC 5.12, Hgb 14.7, Hct 44.2, MCV 86.3, MCH 28.7, MCHC 33.3, RDW 13.1, Plt Count 190, MPV 10.0, Neut % (Auto) 77.5, Lymph % (Auto) 12.2, [place] % (Auto) 8.6, Eos % (Auto) 0.4, Baso % (Auto) 0.6, Neut # (Auto) 12.6 H, Lymph # (Auto) 2.0, [place] # (Auto) 1.4 H, Eos # (Auto) 0.1, Baso # (Auto) 0.1, Sodium 130 L, Potassium 4.0, Chloride 95 L, Carbon Dioxide 23, Anion Gap 16.0 H, BUN 8 L, Creatinine 0.70, Estimated Creat Clear 158, Estimated GFR 116, Est GFR ( Amer) 140, Glucose 96 D, Calcium 7.7 L, Magnesium 1.8, Total Bilirubin 2.0 H, AST 21, ALT 16, Alkaline Phosphatase 74, Total Protein 7.1, Albumin 4.0, Globulin 3.1, Albumin/Globulin Ratio 1.3 01/21/25 09:29: POC Glucose 114 H 01/21/25 13:15: POC Glucose 155 H I & O for Labs for Last 24 Hours: Intake & Output 01/18/25 01/19/25 01/20/25 01/21/25 23:59 23:59 23:59 23:59 Intake Total 640 / 640 1000 / 1000 Output Total 400 / 400 600 / 600 Balance 240 / 240 400 / 400 Weight 95.878 kg 96.842 kg Constitutional: Present mild distress, obese, chronically ill appearing and cooperative Head: Present atraumatic and normocephalic Respiratory: Present normal respiratory effort; Absent rhonchi, wheezes or crackles Cardiac: Present Reg Rate and Rhythm GI: Present soft, tenderness (Right upper quadrant) and normal bowel sounds; Absent distention Comments:: NATE in place out of right upper quadrant with bloody discharge Extremities: Present normal inspection and full ROM Skin: Present intact; Absent erythema Neuro: Present Grossly Intact, alert, awake, oriented x 3 and moves all extremities Assessment and Plan *Assessment and plan (1) Acute calculous cholecystitis: Status: Acute Category: Medical Code(s): K80.00 - Calculus of gallbladder with acute cholecystitis without obstruction (2) Abdominal pain, RUQ: Status: Acute Category: Medical Code(s): R10.11 - Right upper quadrant pain (3) Diabetes: Status: Acute Category: Medical Code(s): E11.9 - Type 2 diabetes mellitus without complications (4) Obstructive sleep apnea: Status: Acute Category: Medical Code(s): G47.33 - Obstructive sleep apnea (adult) (pediatric) (5) Tobacco use disorder: Status: Acute Category: Medical Code(s): F17.200 - Nicotine dependence, unspecified, uncomplicated (6) Hypertension: Status: Acute Category: Medical Code(s): I10 - Essential (primary) hypertension Plan 59-year-old male who presents with right upper quadrant pain, acute onset. Presentation consistent with cholecystitis. Discussed case with ER physician, request admission for antibiotics and surgical eval. I decided to admit for further care. Taken for surgery today, surgery complex with significant bleeding. Admitted to ICU after procedure for close monitoring. NATE in place. Discussed case with surgeon, request close monitoring of serial H&H. Liver was nodular concerning for cirrhotic. Continues to require inpatient management. Clear liquid diet. Problems addressed as follows: Cholecystitis Right upper quadrant pain Nodular liver - Formal right upper quadrant ultrasound per my review showing stones and sludge in the gallbladder. wall thickening with pericholecystic fluid. CBD does not appear dilated. Approximately 6 mm by my measurement - White count elevated this morning at 16. Initiated on Zosyn prophylactically 3.375 g every 6 hours. Liver enzymes remain normal with bilirubin 2, AST 21, ALT 16, alk phos 74 - repeat CBC, CMP, magnesium ordered for the morning - Repeat H&H ordered for this afternoon, had significant blood loss during surgery. High risk for decompensation. Close monitoring. - Kidney function normal with BUN 8, creatinine 0.7 - Maintenance IV fluids with LR at 100 cc an hour - Morphine 4 mg IV as needed every 2 hours for pain. Monitor for toxicity Diabetes: Sliding scale insulin and fingersticks ACHS. Well-managed with metformin and Jardiance. Reports A1c of 7.1 in the past month Hypertension: Holding blood pressure meds at this time pending surgery. Reevaluate in the morning. Continue pantoprazole 40 mg nightly for GERD Clear liquid diet Full code SCDs, chemoprophylaxis contraindicated
--- NOTE | 2025-01-21 15:04 | SUR.PHASEI ---
1419- Detailed report called to [facility]. Patient's VSS, on 4L nasal canual. Patient transported to ICU via bed. Family updated in waiting room. 1420- patient stable in ICU and left with PATY Lara RN at bedside.
[2025-01-21 16:43] LABS: POC Glucose,Bedside 189 (70-110)
[2025-01-21] MEDS: humaLOG 100 UNITS/ML 10ML VIAL (SSI) SUBCUT ×2 (17:05→20:01)
[2025-01-21 17:21] LABS: Hematocrit 45.9 % (42.0-52.0); Hemoglobin 15.2 g/dL (14.1-18.0)
[2025-01-21 17:31] LABS: POC Glucose,Bedside 168 (70-110)
[2025-01-21 17:42] LABS: INR 1.33 (0.9-1.1); Prothrombin Time 14.5 seconds (10.1-12.5)
[2025-01-21] MEDS: PANTOPRAZOLE 40MG TABLET 40 MG PO (20:02)
[2025-01-21 20:16] LABS: POC Glucose,Bedside 194 (70-110)
--- NOTE | 2025-01-21 22:28 | PC.NURSE ---
Patient noticed that the gauze overtop of the drain suture is bleeding and is on his pillowcase. new 4x4s were placed over top of the one thats saturated and a new tegaderm was placed on it
[2025-01-22] VITALS (9 sets, daily range): BP systolic 133–158; BP diastolic 69–79; PULSE 64–123; RESP 12–25; TEMP 36.1–36.7; O2SAT 90–96; BMI 29.8
[2025-01-22] MEDS: PIPERCILLIN/TAZO 3.375 GM in 0.9 % SODIUM CHLORIDE 50 ML IV ×3 (01:15→13:56)
[2025-01-22] MEDS: MORPHINE 4MG/ML SYRINGE 4 MG IV ×5 (01:15→14:00)
[2025-01-22] MEDS: LACTATED RINGERS 1000ML 1,000 ML 100 ML IV (04:30)
[2025-01-22] MEDS: humaLOG 100 UNITS/ML 10ML VIAL (SSI) SUBCUT ×2 (05:50→11:26)
[2025-01-22 05:52] LABS: Hematocrit 42.8 % (42.0-52.0); Hemoglobin 14.4 g/dL (14.1-18.0); Immature Granulocytes % 0.9 %; Mean Corpuscular HGB Conc 33.6 g/dL (31.8-35.4); Mean Corpuscular Hemoglobin 28.9 pg (27.0-31.2); Mean Corpuscular Volume 85.8 fl (80-94); Nucleated Red Blood Cells % 0 %; Platelet Count 241 K/mm3 (142-424); Red Blood Count 4.99 M/mm3 (4.60-6.20); Red Cell Distribution Width-SD 40.3 fL; White Blood Count 17.7 K/mm3 (4.8-10.8)
[2025-01-22 05:54] LABS: POC Glucose,Bedside 160 (70-110)
[2025-01-22 06:07] LABS: Alanine Aminotransferase 51 U/L (12-78); Albumin Level 3.9 g/dl (3.5-5.0); Albumin/Globulin Ratio 1.1 (1.1-1.8); Alkaline Phosphatase 74 U/L (38-126); Anion Gap 14.5 mEq/L (5-15); Aspartate Amino Transferase 61 U/L (17-59); Bilirubin,Total 1.4 mg/dl (0.2-1.3); Blood Urea Nitrogen 18 mg/dl (9-20); Calcium 8.5 mg/dl (8.4-10.2); Carbon Dioxide 24 mmol/L (22.0-30.0); Chloride 97 mmol/L (98-107); Creatinine Clearance Estimated 110 mL/min (50-200); Creatinine,Serum 1.00 mg/dl (0.66-1.25); Estimated Glomerular Filt Rate 77 ml/min (>60); GFR (African American) 93 ML/MIN (>60); Globulin 3.5 g/dL (1.3-3.2); Glucose 169 mg/dl (74-100); Magnesium 2.1 mg/dl (1.6-2.3); Potassium 4.5 mmoL/L (3.5-5.1); Sodium 131 mmol/L (136-145); Total Protein,Serum 7.4 g/dl (6.3-8.2)
--- NOTE | 2025-01-22 10:19 | EXP.ANES.II ---
[facility] Anesthesia Record Part II Anesthesia Record Part II Discharge Time: 14:12 Destination: Surgical Day Care (OP Surgery) PACU nurse assessment reviewed?: Yes Patient Condition:: Good Anesthesia Complications:: None Swallowing reflex intact?: Yes Airway Patency: Patent Cyanosis?: No Blood Pressure: 142/69 SaO2: 94 Respiratory Rate: 18 Pulse Rate: 73 Temperature: 97 F Mental Status: Alert & Oriented Pain level:: 0 Nausea and/or vomitting:: None Intake, IV Amount: 0 Hydration: Adequate
[2025-01-22 11:07] LABS: POC Glucose,Bedside 186 (70-110)
--- NOTE | 2025-01-22 15:32 | PC.NURSE ---
Dr. Brandt at bedside for NATE drain removal. one suture removed along with drain. incision covered with non-adherent dressing and tegaderm. pt tolerated well
--- OUTSIDE RECORDS SUMMARY | 2025-01-22 15:40 | XMS_ITS | Clinical Summary ---
Author Organization [facility] Address [address] [place] [address] Care Team Providers Care Electric Motor Controls Assembler Name Role Phone Lynnette Mohamud MD Primary Care Provider [phone]- [phone] Allergies Active Allergy Reactions Criticality Noted Date Comments Statins Other - please docum ent in the comment field Low 01/15/2021 Muscle and joint pain Medications metFORMIN (Glucophage) 1000 MG tablet Take 1 tablet by mouth 2 (two) times a day. 1 Active HYDROcodone-mateo taminophen ([place]) 5-325 MG tablet Take 1 tablet by [...] Administration Dates Next Due Moderna COVID-19 Vaccine (Digital Strategist) 12+ years ,08/12/2020 TD (adult), 2 Lf [...] 2016 UKY-Zoster Vaccines (1 of 2) 2016 [id number] Vaccine (3 - season) 2024 09/10/2020, 08/12/2020 [...] patient's age to complete this topic [place] [address] [address] [place] [address] Care Teams Electric Motor Controls Assembler Relationship Specialty Start Date End Date Lynnette Mohamud MD [address] [place] [address] PCP - General 01/15/21
--- NOTE | 2025-01-22 15:45 | EXP.DC.SUM ---
General Admission date:: 01/20/25 Discharge date: 01/22/25 HPI HPI HPI: 59-year-old male who presents with 2 days of right upper quadrant pain. Pain became very severe mainly in the right upper quadrant. No referral to shoulder. Accompanied by some nausea but no emesis. Denies shortness of breath or chest pain. Afebrile. Not associated with eating, more or less constant at this time. Has history of gallbladder sludge and pancreatitis in 2020. Underwent ERCP with sphincterotomy at that time. Presentation today, white count 13.5, quite tender in right upper quadrant. Liver enzymes relatively normal with bilirubin 1.7, AST 27, ALT 21, alk phos 81. Lipase 32. Imaging obtained showing distended gallbladder with wall thickening. Findings consistent with cholecystitis. Medicine consulted for admission and further management. Surgery consulted to eval for cholecystectomy. Hospital Course Hospital Course Hospital Course: 59-year-old male who presents with right upper quadrant pain, acute onset. Presentation consistent with cholecystitis. Discussed case with ER physician, request admission for antibiotics and surgical eval. I decided to admit for further care. Taken for surgery today, surgery complex with significant bleeding. Admitted to ICU after procedure for close monitoring. NATE in place. Monitored overnight. Did well with advancement of diet. Had minimal output that was serosanguineous. No bilious or jesse blood in NATE drain. NATE removed before discharge. Serial H&H stable. Will discharge home with close follow-up plan. Continue antibiotics to complete 7 days total of therapy. Problems addressed as follows Cholecystitis Right upper quadrant pain Nodular liver - Formal right upper quadrant ultrasound per my review showing stones and sludge in the gallbladder. wall thickening with pericholecystic fluid. CBD does not appear dilated. Approximately 6 mm by my measurement. White count is elevated 16, initiated on Zosyn prophylactically. Liver enzymes were essentially normal. Patient was taken for cholecystectomy. Complicated by bleeding. Concern for nodular liver on visual inspection during procedure. NATE was left in place to monitor for bleeding in surgical bed. Monitored overnight with serial H&H. Hemoglobin 14 on morning of discharge. Minimal output in NATE. Will continue Augmentin 3 times a day to complete 7 days of antibiotics for complicated cholecystitis. Recommend follow-up with surgery in 1 week. Given nodular appearance of liver, will refer to GI for outpatient eval for possible cirrhosis/liver fibrosis. -Tolerating p.o. intake. NATE removed prior to discharge Diabetes: Sliding scale insulin and fingersticks ACHS. Well-managed with metformin and Jardiance. Reports A1c of 7.1 in the past month Hypertension: Holding blood pressure meds prior to surgery. Resumed at discharge. Continue pantoprazole 40 mg nightly for GERD Total time spent on discharge 35 minutes in counseling, documentation, chart review, and direct care with patient. Exam Data for Last 24 hours Vital signs and Labs for Last 24 Hours: Temp Pulse Resp BP Pulse Ox O2 Del Method O2 Flow Rate 98.1 F 70 22 150/79 H 95 Nasal Cannula 2 01/22/25 12:00 01/22/25 12:00 01/22/25 12:00 01/22/25 12:00 01/22/25 12:00 01/22/25 13:00 01/22/25 13:00 Laboratory Results - last 24 hr 01/21/25 16:36: POC Glucose 189 H 01/21/25 17:07: Hgb 15.2, Hct 45.9, PT 14.5 H, INR 1.33 H 01/21/25 17:21: POC Glucose 168 H 01/21/25 19:51: POC Glucose 194 H 01/22/25 05:09: WBC 17.7 H, RBC 4.99, Hgb 14.4, Hct 42.8, MCV 85.8, MCH 28.9, MCHC 33.6, RDW 13.0, Plt Count 241 D, MPV 9.9, Neut % (Auto) 86.1 H, Lymph % (Auto) 5.3 L, [place] % (Auto) 7.4, Eos % (Auto) 0.1, Baso % (Auto) 0.2, Neut # (Auto) 15.2 H, Lymph # (Auto) 0.9, [place] # (Auto) 1.3 H, Eos # (Auto) 0.0, Baso # (Auto) 0.0, Sodium 131 L, Potassium 4.5, Chloride 97 L, Carbon Dioxide 24, Anion Gap 14.5, BUN 18 D, Creatinine 1.00 D, Estimated Creat Clear 110, Estimated GFR 77, Est GFR ( Amer) 93 D, Glucose 169 H D, Calcium 8.5, Magnesium 2.1 D, Total Bilirubin 1.4 H, AST 61 H D, ALT 51 D, Alkaline Phosphatase 74, Total Protein 7.4, Albumin 3.9, Globulin 3.5 H, Albumin/Globulin Ratio 1.1 01/22/25 05:45: POC Glucose 160 H 01/22/25 11:00: POC Glucose 186 H I & O for Last 24 hours: Intake & Output 01/19/25 01/20/25 01/21/25 01/22/25 23:59 23:59 23:59 23:59 Intake Total 640 / 640 1638 / 1938 1788 / 1788 Output Total 400 / 400 1870 / 1870 1250 / 1250 Balance 240 / 240 -232 / 68 538 / 538 Weight 95.878 kg 96.842 kg 96.745 kg Constitutional Constitutional: no acute distress, obese, chronically ill appearing and cooperative *Routine HEENT Exam Head: Present normocephalic Eye: Present EOMI and PERRL ENT: Present mucous membranes moist *Routine Neck Exam Neck: Present supple; Absent lymphadenopathy *Routine Respiratory Exam Respiratory: Present CTA bilaterally; Absent rhonchi, wheezes or crackles *Routine Cardiovascular Exam Cardiovascular: Present RRR *Routine Abdominal Exam Abdominal: Present soft, normoactive bowel sounds, tenderness (Right upper quadrant at surgical insertion sites. Bandages clean dry and intact) and distended; Absent rebound or guarding Comments: Active bowel sounds. Passing gas and tolerating p.o. intake; NATE drain removed prior to discharge *Routine Rectal Exam Patient deferred: visual exam *Routine Exam Patient deferred: penile exam *Routine Extremities Exam Extremities: Absent cyanosis, clubbing or edema *Routine Skin Exam Skin: Present intact and warm; Absent rash *Routine Neurological Exam Neurological: Present alert, oriented X3 and moving all extremities; Absent altered mental status Results Data Completed and Pending Labs on day of discharge: Labs from last 24 hours 01/22/25 01/22/25 01/22/25 11:00 05:45 05:09 WBC 17.7 H RBC 4.99 Hgb 14.4 Hct 42.8 MCV 85.8 MCH 28.9 MCHC 33.6 RDW 13.0 Plt Count 241 D MPV 9.9 Neut % (Auto) 86.1 H Lymph % (Auto) 5.[address] [place] % (Auto) 7.4 Eos % (Auto) 0.1 Baso % (Auto) 0.2 Neut # (Auto) 15.2 H Lymph # (Auto) 0.9 [place] # (Auto) 1.3 H Eos # (Auto) 0.0 Baso # (Auto) 0.0 PT INR Sodium 131 L Potassium 4.5 Chloride 97 L Carbon Dioxide 24 Anion Gap 14.5 BUN 18 D Creatinine 1.00 D Estimated Creat Clear 110 Estimated GFR 77 Est GFR ( Amer) 93 D Glucose 169 H D POC Glucose 186 H 160 H Calcium 8.5 Magnesium 2.1 D Total Bilirubin 1.4 H AST 61 H D ALT 51 D Alkaline Phosphatase 74 Total Protein 7.4 Albumin 3.9 Globulin 3.5 H Albumin/Globulin Ratio 1.1 01/21/25 01/21/25 01/21/25 19:51 17:21 17:07 WBC RBC Hgb 15.2 Hct 45.9 MCV MCH MCHC RDW Plt Count MPV Neut % (Auto) Lymph % (Auto) [place] % (Auto) Eos % (Auto) Baso % (Auto) Neut # (Auto) Lymph # (Auto) [place] # (Auto) Eos # (Auto) Baso # (Auto) PT 14.5 H INR 1.33 H Sodium Potassium Chloride Carbon Dioxide Anion Gap BUN Creatinine Estimated Creat Clear Estimated GFR Est GFR ( Amer) Glucose POC Glucose 194 H 168 H Calcium Magnesium Total Bilirubin AST ALT Alkaline Phosphatase Total Protein Albumin Globulin Albumin/Globulin Ratio 01/21/25 16:36 WBC RBC Hgb Hct MCV MCH MCHC RDW Plt Count MPV Neut % (Auto) Lymph % (Auto) [place] % (Auto) Eos % (Auto) Baso % (Auto) Neut # (Auto) Lymph # (Auto) [place] # (Auto) Eos # (Auto) Baso # (Auto) PT INR Sodium Potassium Chloride Carbon Dioxide Anion Gap BUN Creatinine Estimated Creat Clear Estimated GFR Est GFR ( Amer) Glucose POC Glucose 189 H Calcium Magnesium Total Bilirubin AST ALT Alkaline Phosphatase Total Protein Albumin Globulin Albumin/Globulin Ratio DS: Diagnosis Discharge Diagnosis (1) Acute calculous cholecystitis: Status: Acute Code(s): K80.00 - Calculus of gallbladder with acute cholecystitis without obstruction (2) Abdominal pain, RUQ: Status: Acute Code(s): R10.11 - Right upper quadrant pain (3) Diabetes: Status: Acute Code(s): E11.9 - Type 2 diabetes mellitus without complications (4) Obstructive sleep apnea: Status: Acute Code(s): G47.33 - Obstructive sleep apnea (adult) (pediatric) (5) Tobacco use disorder: Status: Acute Code(s): F17.200 - Nicotine dependence, unspecified, uncomplicated (6) Hypertension: Status: Acute Code(s): I10 - Essential (primary) hypertension Meds Home Medications and Allergies Home Medications ?Medication ?Instructions ?Recorded ?Confirmed ?Type metformin 1,000 mg tablet 1,000 mg PO BID 12/30/20 01/20/25 History pantoprazole 40 mg tablet,delayed 40 mg PO DAILY 12/30/20 01/20/25 History release amlodipine 10 mg tablet 10 mg PO DAILY 01/20/25 01/20/25 History empagliflozin 25 mg tablet 25 mg PO DAILY 01/20/25 01/20/25 History (Jardiance) amoxicillin 500 mg-potassium 1 tab PO TID 6 days #18 tabs 01/22/25 Rx clavulanate 125 mg tablet (Augmentin) hydrocodone 5 mg-acetaminophen 325 1 tab PO Q6H PRN pain #14 tabs 01/22/25 Rx mg tablet New Prescriptions to Start Prescriptions: amoxicillin-pot clavulanate [Augmentin] [place] Solitario hydrocodone-acetaminophen [place] Solitario Allergies Allergy/AdvReac Type Severity Reaction Status Date / Time No Known Allergies Allergy Verified 01/21/21 09:54 Discharge Plan Disposition Patient Disposition: Home, Self-Care Condition: Fair Discharge Order Discharge Orders: Discharge Order (Routine); Ordered 01/22/25 Ordered By: Washington Solitario Follow up Plan Follow up with: Jean Brandt MD [Staff Physician, General Surgery] - 01/29/25 9:45 am Kt Richardson II, MD [Staff Physician, Gastroenterology] - 02/25/25 10:30 am Referral Note: Suspected cirrhosis by appearance during cholecystectomy Sosa Quigley APRN [Primary Care Provider, Medical] - 01/29/25 11:15 am Prescriptions/Medication Reconciliation: New hydrocodone-acetaminophen 5-325 mg tablet 1 tab PO Q6H PRN (Reason: pain) Qty: 14 0RF amoxicillin-pot clavulanate [Augmentin] 500-125 mg tablet 1 tab PO TID 6 Days Qty: 18 0RF Continued pantoprazole 40 MG tablet,delayed release (DR/EC) 40 mg PO DAILY metformin 1,000 MG tablet 1,000 mg PO BID amlodipine 10 mg tablet 10 mg PO DAILY Patient Comments: TAKE 1 TABLET BY MOUTH DAILY. Jardiance 25 mg tablet 25 mg PO DAILY Patient Comments: TAKE 1 TABLET BY MOUTH DAILY. Problem Reconciliation Problems Reviewed?: Yes Patient Discharge Instructions ACTIVITY: Continue current activity DIET: continue same diet Patient Instructions: DI for Surgical Site Infection, Cholecystectomy -- Laparoscopic Surgery, DI for Cholecystitis Print Language: Spanish Providers Primary Care Provider: Sosa Quigley Admit Provider: Washington Solitario Attending Provider: Washington Solitario
== END 2025-01-22 16:47 | disposition home or self-care (01) | DRG 419 ==
LOC: ER 15:23 → 2ND 17:03 → ICU 01-22 15:39
PROVIDERS: Surgery; Admitting Provider Internal Medicine Adolescent Medicine; Emergency Provider Student in an Organized Health Care Education/Training Program; PCP Nurse Practitioner Family; Visit Provider Internal Medicine Adolescent Medicine
PROC: 0FT44ZZ Resection of Gallbladder, Percutaneous Endoscopic Approach (ICD-10-PCS; CPT 47562; principal; 2025-01-21 10:30)
DX: K80.00 Calculus of gallbladder with acute cholecystitis without obstruction (principal); E11.9 Type 2 diabetes mellitus without complications; G47.33 Obstructive sleep apnea (adult) (pediatric); I10 Essential (primary) hypertension; K21.9 Gastro-esophageal reflux disease without esophagitis; K74.69 Other cirrhosis of liver; F17.210 Nicotine dependence, cigarettes, uncomplicated; Z79.84 Long term (current) use of oral hypoglycemic drugs; Z79.899 Other long term (current) drug therapy
CPT/HCPCS: 36415; 76705; 80053; 80074; 82962; 83690; 83735; 85014; 85018; 85025; 85610; 87389; J1100; J1171; J1650; J2003; J2250; J2270; J2405; J2543; J2704; J2795; J3010; J7120

== ENCOUNTER 2025-03-14 08:12 | Outpatient (CLI) | payer BC, SELFPAY ==
--- OUTSIDE RECORDS SUMMARY | 2025-03-14 08:19 | XMS_ITS | Clinical Summary ---
Author Organization [facility] Address [address] [place] [address] Care Team Providers Care Remote Sensing Advisor Name Role Phone Lynnette Mohamud MD Primary Care Provider [phone]- [phone] Allergies Active Allergy Reactions Criticality Noted Date Comments Statins Other - please docum ent in the comment field Low 01/15/2021 Muscle and joint pain Medications metFORMIN (Glucophage) 1000 MG tablet Take 1 tablet by mouth 2 (two) times a day. 1 Active HYDROcodone-mateo taminophen ([place]) 5-325 MG tablet Take 1 tablet by [...] Administration Dates Next Due Moderna COVID-19 Vaccine (Stock And Station Agent) 12+ years ,08/12/2020 TD (adult), 2 Lf [...] 2016 UKY-Zoster Vaccines (1 of 2) 2016 [id number] Vaccine (3 - season) 2024 09/10/2020, 08/12/2020 UKY-Influenza Vaccine (#1) 2025 HPV Vaccines Aged Out No longer [...] patient's age to complete this topic [place] [address] [place] [address] Care Teams Remote Sensing Advisor Relationship Specialty Start Date End Date Lynnette Mohamud MD [address] [place] [address] PCP - General 01/15/21
[2025-03-14 09:37] LABS: Alanine Aminotransferase 26 U/L (12-78); Albumin Level 4.2 g/dl (3.5-5.0); Albumin/Globulin Ratio 1.4 (1.1-1.8); Alkaline Phosphatase 103 U/L (38-126); Anion Gap 14.4 mEq/L (5-15); Aspartate Amino Transferase 27 U/L (17-59); Bilirubin,Direct 0.3 mg/dl (0.0-0.4); Bilirubin,Indirect 0.2 mg/dL (0.0-0.9); Bilirubin,Total 0.5 mg/dl (0.2-1.3); Bilirubin,Unconjugated 0.2 mg/dL (0.0-1.1); Blood Urea Nitrogen 14 mg/dl (9-20); Calcium 8.9 mg/dl (8.4-10.2); Carbon Dioxide 23 mmol/L (22.0-30.0); Chloride 105 mmol/L (98-107); Creatinine,Serum 0.70 mg/dl (0.66-1.25); Estimated Glomerular Filt Rate 116 ml/min (>60); GFR (African American) 140 ML/MIN (>60); Globulin 3.0 g/dL (1.3-3.2); Glucose 146 mg/dl (74-100); Potassium 4.4 mmoL/L (3.5-5.1); Sodium 138 mmol/L (136-145); Total Protein,Serum 7.2 g/dl (6.3-8.2)
== END 2025-03-14 23:59 | disposition home or self-care (01) ==
LOC: LAB 08:16
PROVIDERS: PCP Nurse Practitioner Family; Visit Provider Nurse Practitioner Family
DX: R17 Unspecified jaundice (principal)
CPT/HCPCS: 36415; 80053; 81596; 82172; 82247; 82248; 82465; 82947; 82977; 83521; 84450; 84460; 84478

== ENCOUNTER 2025-05-27 09:28 | Outpatient (CLI) | payer BC, SELFPAY ==
--- OUTSIDE RECORDS SUMMARY | 2025-05-27 09:33 | XMS_ITS | Clinical Summary ---
Author Organization [facility] Address [address] [place] [address] Care Team Providers Care Marketing Strategy Lead Name Role Phone Lynnette Mohamud MD Primary Care Provider [phone]- [phone] Allergies Active Allergy Reactions Criticality Noted Date Comments Statins Other - please docum ent in the comment field Low 01/15/2021 Muscle and joint pain Medications metFORMIN (Glucophage) 1000 MG tablet Take 1 tablet by mouth 2 (two) times a day. 1 Active HYDROcodone-mateo taminophen ([place]) 5-325 MG tablet Take 1 tablet by [...] Administration Dates Next Due Moderna COVID-19 Vaccine (Handkerchief Presser) 12+ years ,08/12/2020 TD (adult), 2 Lf [...] 2016 UKY-Zoster Vaccines (1 of 2) 2016 [id number] Vaccine (3 - season) 2025 09/10/2020, 08/12/2020 UKY-Influenza Vaccine (#1) 2025 HPV [...] patient's age to complete this topic Insurance [place] [address] Care Teams Marketing Strategy Lead Relationship Specialty Start Date End Date Lynnette Mohamud MD [address] [place] [address] PCP - General 01/15/21
[2025-05-27 11:25] LABS: Alanine Aminotransferase 39 U/L (12-78); Albumin Level 4.3 g/dl (3.5-5.0); Albumin/Globulin Ratio 1.2 (1.1-1.8); Alkaline Phosphatase 108 U/L (38-126); Anion Gap 13.4 mEq/L (5-15); Aspartate Amino Transferase 32 U/L (17-59); Bilirubin,Total 0.6 mg/dl (0.2-1.3); Blood Urea Nitrogen 11 mg/dl (9-20); Calcium 9.3 mg/dl (8.4-10.2); Carbon Dioxide 24 mmol/L (22.0-30.0); Chloride 101 mmol/L (98-107); Creatinine,Serum 0.80 mg/dl (0.66-1.25); Estimated Glomerular Filt Rate 99 ml/min (>60); GFR (African American) 120 ML/MIN (>60); Globulin 3.6 g/dL (1.3-3.2); Glucose 158 mg/dl (74-100); Potassium 4.4 mmoL/L (3.5-5.1); Sodium 134 mmol/L (136-145); Total Protein,Serum 7.9 g/dl (6.3-8.2)
== END 2025-05-27 23:59 | disposition home or self-care (01) ==
LOC: LAB 09:29
PROVIDERS: PCP Nurse Practitioner Family; Visit Provider Nurse Practitioner Family
DX: K76.0 Fatty (change of) liver, not elsewhere classified (principal)
CPT/HCPCS: 36415; 80053

== ENCOUNTER 2025-06-02 08:13 | Outpatient (CLI) | payer BC, SELFPAY ==
--- OUTSIDE RECORDS SUMMARY | 2025-06-02 08:15 | XMS_ITS ---
Author Organization Unknown ENCOUNTERS Encounter Performer Location Date Diagnosis Diagnosis Status Inpatient [facility] [place] [address] [place] [address] [id number] [facility] Outpatient [facility] [place] [address] [place] [address] [id number] Pre Admit [facility] [address] [place] [address] [id number] Emergency [facility] [address] [place] [address] [id number] Pre Admit [facility] [place] [address] [id number] Emergency [facility] [place] [address] [id number] [facility] Emergency [facility] [place] [address] [place] [address] [id number] [facility] *Note: Encounters from your own facility or health system may be excluded. Allergies, Adverse Reactions, Alerts Allergen Type Severity Identification Date Medications Name Date Quantity Days Supplied [facility] Number
--- OUTSIDE RECORDS SUMMARY | 2025-06-02 08:15 | XMS_ITS | Clinical Summary ---
Author Organization [facility] Address [address] [place] [address] Care Team Providers Care Metal Hanging Helper Name Role Phone Lynnette Mohamud MD Primary Care Provider +1- [phone] Allergies Active Allergy Reactions Criticality Noted Date Comments Statins Other - please docum ent in the comment field Low 01/15/2021 Muscle and joint pain Medications metFORMIN (Glucophage) 1000 MG tablet Take 1 tablet by mouth 2 (two) times a day. 1 Active HYDROcodone-mateo taminophen ([place]) 5-325 MG tablet Take 1 tablet by [...] Administration Dates Next Due Moderna COVID-19 Vaccine (Assistant Nurse Manager) 12+ years ,08/12/2020 TD (adult), 2 Lf [...] Date Last Done Comments UKY-Depression Screening 1966 UKY-/Child/Adol SDOH Screenings 1966 UKY- SDOH Screenings 1984 [...] 2016 UKY-Zoster Vaccines (1 of 2) 2016 [id number] Vaccine (3 - season) 2025 09/10/2020, 08/12/2020 [...] patient's age to complete this topic [place] [address] Care Teams Metal Hanging Helper Relationship Specialty Start Date End Date Lynnette Mohamud MD [address] [place] [address] PCP - General 01/15/21
--- NOTE | 2025-06-02 08:30 | US_ITS ---
FINAL REPORT TECHNIQUE: Multiple transverse and longitudinal images CLINICAL HISTORY: Rule out cirrhosis FINDINGS: Patient is status postcholecystectomy. No biliary ductal dilatation is appreciated. No fluid collections are seen. There is fatty infiltration of the liver. Limited portions of the right kidney are unremarkable. Pancreas is largely obscured. IMPRESSION: Fatty liver. Reviewed, Interpreted and Dictated by Maria M Pham MD Transcribed by Rayne Mendez Authenticated and [facility]
== END 2025-06-02 23:59 ==
LOC: RAD 08:13
PROVIDERS: PCP Internal Medicine; Visit Provider Nurse Practitioner Family
DX: K76.0 Fatty (change of) liver, not elsewhere classified (principal)
CPT/HCPCS: 76705